=== PATIENT | male | born 1990 | race Caucasian/White ===

== ENCOUNTER 2023-09-28 00:55 | Emergency (ER) | payer OTHER, SELFPAY ==
[2023-09-28 01:04] VITALS: BP 132/89; PULSE 80; TEMP 37.1; O2SAT 98; BMI 26.6
--- NOTE | 2023-09-28 01:15 | CT_ITS ---
The [address] [address] Patient Name: EDWARD MARI MRN: [id number] date: 1990 Sex: M Assigned Patient Location: ER Current Patient Location: ED.MAIN Accession/Order Number: [id number] Exam Date: 09/28/2023 01:33 Report Date: 09/28/2023 04:10 At the request of: ROSHAN WILLINGHAM Procedure: CT abdomen pelvis w con EXAM: CT abdomen pelvis w con HISTORY: Right-sided abdominal pain, rule out appendicitis COMPARISON: None. TECHNIQUE: IV contrast enhanced CT imaging the abdomen and pelvis was performed with sagittal and coronal reconstructions using 98 mL of Omnipaque 300 intravenous contrast. Dose reduction techniques were achieved by using automated exposure control and/or adjustment of mA and/or kV according to patient size and/or use of iterative reconstruction technique. FINDINGS: CT ABDOMEN: The lung bases are clear. Imaged heart is unremarkable. The liver, gallbladder, pancreas, spleen, adrenal glands, kidneys, aorta, IVC, stomach and small bowel appear normal. There is a fat-containing umbilical hernia. CT PELVIS: A normal appendix is seen on images 67-78 of series 3. The prostate and urinary bladder are normal in appearance. Very mild wall thickening is seen in the terminal ileum on images 74 through 83, with no surrounding inflammatory change. Remaining pelvic small bowel loops are otherwise unremarkable. There is mild colonic diverticulosis. No inflammatory fat stranding, free fluid, loculated fluid, free air or osseous abnormality is seen in the abdomen or pelvis. CT/CT abdomen pelvis w con IMPRESSION: 1. Very mild wall thickening in the terminal ileum may reflect mild infectious or inflammatory ileitis. No surrounding inflammatory change is seen. No other potential cause of right lower quadrant pain is seen. There are no other potential acute findings in the abdomen or pelvis. 2. Normal appendix. 3. Mild colonic diverticulosis. Electronically authenticated by: BEENA MORATAYA Date: 09/28/2023 04:10
--- NOTE | 2023-09-28 01:15 | ED_ITS ---
HPI - Abdominal Pain General Chief Complaint: Abdominal Pain Stated Complaint: Stomach pain Time Seen by Provider: 09/28/23 00:59 Source: patient Mode of arrival: walk-in Limitations: no limitations History of Present Illness HPI narrative: 33-year-old male presents to the emergency department for abdominal pain. It started in the epigastric area but now is moved into the right lower quadrant. It started today. No trauma fever or constipation. He states he had a little bit of diarrhea but not much. No left-sided pain. No chest pain or shortness of breath. The pain is moderate and continuous. No flank pain or dysuria or hematuria. Related Data Home Medications ?Medication ?Instructions ?Recorded ?Confirmed alprazolam 0.5 mg tablet mg 09/28/23 pantoprazole 40 mg tablet,delayed mg PO 09/28/23 release vortioxetine 20 mg tablet mg 09/28/23 (Trintellix) zolpidem 10 mg tablet mg 09/28/23 Previous Rx's ?Medication ?Instructions ?Recorded hydrocodone 5 mg-acetaminophen 325 1 tab PO Q6H PRN pain 5 days #20 09/28/23 mg tablet tabs ondansetron 4 mg disintegrating 4 mg PO Q6H PRN nausea and 09/28/23 tablet vomiting #20 tabs Allergies Allergy/AdvReac Type Severity Reaction Status Date / Time No Known Drug Allergies Allergy Verified 09/28/23 01:04 Review of Systems ROS Narrative A ten point review of systems is negative except as noted above. Exam Narrative Exam Narrative: Nurses note and vital signs reviewed and patient is not hypoxic. General: The patient appears well and in no apparent distress. Patient is resting comfortably on cart. Skin: Warm, dry, no pallor noted. There is no rash noted. Head: Normocephalic, atraumatic Eye: Normal conjunctiva, no drainage Ears, Nose, Mouth, and Throat: oral mucosa is moist. Nares patent. Cardiovascular: Regular Rate and Rhythm Respiratory: Patient is in no distress, no accessory muscle use, lungs are clear to auscultation, no wheezing, rales or rhonchi Back: non-tender GI: Tenderness present on the right side of the abdomen going towards the right lower quadrant. No mass or distention. Musculoskeletal: The patient has no evidence of calf tenderness, no pitting edema, symmetrical pulses noted bilaterally Neurological: A&O, normal speech Psychiatric: Cooperative Constitutional Vital Signs, click to edit/add: Last Vital Signs Temp 98.8 F 09/28/23 01:04 Pulse 80 09/28/23 01:04 Resp 16 09/28/23 01:04 BP 132/89 09/28/23 01:04 Pulse Ox 98 09/28/23 01:04 O2 Del Method Room Air 09/28/23 01:04 Course Vital Signs Vital signs: Vital Signs Temperature 98.8 F 09/28/23 01:04 Pulse Rate 80 09/28/23 01:04 Respiratory Rate 16 09/28/23 01:04 Blood Pressure 132/89 09/28/23 01:04 Pulse Oximetry 98 09/28/23 01:04 Oxygen Delivery Method Room Air 09/28/23 01:04 Temperature 98.8 F 09/28/23 01:04 Pulse Rate 80 09/28/23 01:04 Respiratory Rate 16 09/28/23 01:04 Blood Pressure 132/89 09/28/23 01:04 Pulse Oximetry 98 09/28/23 01:04 Oxygen Delivery Method Room Air 09/28/23 01:04 MDM - Abdominal Pain MDM Narrative Medical decision making narrative: Blood work is nonspecific. CAT scan per radiologist shows ileitis. The patient does not require admission to the hospital and will be treated symptomatically. Follow-up with PCP if there is no improvement. Treatment diagnosis and follow- up were discussed with the patient. Differential Diagnosis Differential diagnosis: Likely abdominal pain, acute appendicitis, calculus of kidney, constipation, diverticulitis, gastroenteritis, pancreatitis and small bowel obstruction Lab Data Attestation: I reviewed the patient's lab results. Labs: Lab Results 09/28/23 09/28/23 Range/Units 01:23 02:45 WBC 7.5 (4.0-11.0) 10^3/uL RBC 4.65 L (4.70-6.10) 10^6/uL Hgb 13.6 L (14.0-18.0) g/dL Hct 40.2 L (42.0-54.0) % MCV 86.5 (80.0-94.0) fL MCH 29.2 (25.9-34.0) pg MCHC 33.8 (29.9-35.2) g/dL RDW 11.8 (11.0-15.0) % Plt Count 234 (150-450) 10^3/uL MPV 10.7 (9.5-13.5) fL Neut % (Auto) 47.6 (43.0-75.0) % Lymph % (Auto) 41.1 (20.5-60.0) % [place] % (Auto) 7.8 (1.7-12.0) % Eos % (Auto) 2.3 (0.9-7.0) % Baso % (Auto) 0.8 (0.2-2.0) % Neut # (Auto) 3.6 (1.4-6.5) 10^3/uL Lymph # (Auto) 3.1 (1.2-3.8) 10^3/uL [place] # (Auto) 0.6 (0.3-0.8) 10^3/uL Eos # (Auto) 0.2 (0.0-0.7) 10^3/uL Baso # (Auto) 0.1 (0.0-0.1) 10^3/uL Abs Immat Gran (auto) 0.03 (0.00-0.03) 10^3/uL Imm/Tot Granulo (auto) 0.4 (0.0-0.5) % Sodium 139 (136-145) mmol/L Potassium 3.1 L (3.5-5.1) mmol/L Chloride 103 (98-107) mmol/L Carbon Dioxide 30.4 (21.0-32.0) mmol/L Anion Gap 8.7 BUN 16.0 (7.0-18.0) mg/dL Creatinine 1.23 (0.70-1.30) mg/dL Est GFR ( Amer) >60 (>=60) Est GFR (Non-Af Amer) >60 (>=60) BUN/Creatinine Ratio 13.0 Glucose 97 (74-106) mg/dL Calcium 9.1 (8.5-10.1) mg/dL Total Bilirubin 0.6 (0.2-1.0) mg/dL Direct Bilirubin 0.1 (0.0-0.2) mg/dL AST 19 (15-37) U/L ALT 44 (16-63) U/L Alkaline Phosphatase 96 (46-116) U/L Total Protein 6.9 (6.4-8.2) g/dL Albumin 3.8 (3.4-5.0) g/dL Globulin 3.1 g/dL Albumin/Globulin Ratio 1.2 Amylase 43 (25-115) U/L Lipase 54.0 (16.0-77.0) U/L Urine Color Yellow (YELLOW) Urine Clarity Clear (CLEAR) Urine pH 7.5 (5.0-9.0) Ur Specific [place] 1.010 (1.005-1.025) Urine Protein Negative (NEG/TRACE) mg/dL Urine Glucose (UA) Negative (NEGATIVE) mg/dL Urine Ketones Negative (NEGATIVE) mg/dL Urine Occult Blood Negative (NEGATIVE) Urine Nitrite Negative (NEGATIVE) Urine Bilirubin Negative (NEGATIVE) Urine Urobilinogen 1.0 (0.2-1.0) EU/dL Ur Leukocyte Esterase Negative (NEGATIVE) Urine RBC None seen (0-2) #/HPF Urine WBC None seen (NONE SEEN) #/HPF Ur Squamous Epith Cells None seen (NONE/RARE) #/LPF Urine Crystals None seen (None Seen) #/HPF Amorphous Sediment Few Urine Bacteria None seen (NONE SEEN) #/HPF Urine Casts None seen (NONE SEEN) #/LPF Urine Mucus None seen (NONE SEEN) Ur Culture Indicated? No Imaging Data CT scan - abdomen: Radiologist's impression: ITS Impressions Abdomen/Pelvis CT 09/28/23 01:15 IMPRESSION: 1. Very mild wall thickening in the terminal ileum may reflect mild infectious or inflammatory ileitis. No surrounding inflammatory change is seen. No other potential cause of right lower quadrant pain is seen. There are no other potential acute findings in the abdomen or pelvis. 2. Normal appendix. 3. Mild colonic diverticulosis. Electronically authenticated by: BEENA MORATAYA Date: 09/28/2023 04:10 Discharge Plan Discharge Stand Alone Forms: Portal Instructions Chief Complaint: Abdominal Pain Clinical Impression: Ileitis Patient Disposition: Home, Self-Care Time of Disposition Decision: 04:20 Condition: Good Mode of Transportation: Private Vehicle Prescriptions / Home Meds: New hydrocodone-acetaminophen 5-325 mg tablet 1 tab PO Q6H PRN (Reason: pain) 5 Days Qty: 20 0RF ondansetron 4 mg tablet,disintegrating 4 mg PO Q6H PRN (Reason: nausea and vomiting) Qty: 20 0RF No Action alprazolam 0.5 mg tablet pantoprazole 40 mg tablet,delayed release (DR/EC) PO zolpidem 10 mg tablet Trintellix 20 mg tablet Print Language: Barbadian Instructions: Enteritis (ED) Referrals: UNRULY BUTT [Primary Care Provider] - 1 week
[2023-09-28 01:36] LABS: Basophils Absolute Auto 0.1 10^3/uL (0.0-0.1); Basophils Percent Auto 0.8 % (0.2-2.0); Eosinophils Absolute Auto 0.2 10^3/uL (0.0-0.7); Eosinophils Percent Auto 2.3 % (0.9-7.0); Hematocrit 40.2 % (42.0-54.0); Hemoglobin 13.6 g/dL (14.0-18.0); Immature Granulocytes Abs Auto 0.03 10^3/uL (0.00-0.03); Immature Granulocytes Pct Auto 0.4 % (0.0-0.5); Lymphocytes Absolute Auto 3.1 10^3/uL (1.2-3.8); Lymphocytes Percent Auto 41.1 % (20.5-60.0); Mean Corpuscular HGB Conc 33.8 g/dL (29.9-35.2); Mean Corpuscular Hemoglobin 29.2 pg (25.9-34.0); Mean Corpuscular Volume 86.5 fL (80.0-94.0); Mean Platelet Volume 10.7 fL (9.5-13.5); Monocytes Absolute Auto 0.6 10^3/uL (0.3-0.8); Monocytes Percent Auto 7.8 % (1.7-12.0); Neutrophils Absolute Auto 3.6 10^3/uL (1.4-6.5); Neutrophils Percent Auto 47.6 % (43.0-75.0); Platelet Count 234 10^3/uL (150-450); Red Blood Count 4.65 10^6/uL (4.70-6.10); Red Cell Distribution Width 11.8 % (11.0-15.0); White Blood Count 7.5 10^3/uL (4.0-11.0)
[2023-09-28 01:51] LABS: Alanine Aminotransferase 44 U/L (16-63); Albumin Globulin Ratio 1.2; Albumin Level 3.8 g/dL (3.4-5.0); Alkaline Phosphatase 96 U/L (46-116); Amylase 43 U/L (25-115); Anion Gap 8.7; Aspartate Amino Transferase 19 U/L (15-37); Bilirubin Direct 0.1 mg/dL (0.0-0.2); Bilirubin Total 0.6 mg/dL (0.2-1.0); Calcium 9.1 mg/dL (8.5-10.1); Carbon Dioxide 30.4 mmol/L (21.0-32.0); Chloride 103 mmol/L (98-107); Estimated GFR (African America >60 (>=60); Estimated GFR (Non-African Ame >60 (>=60); Globulin 3.1 g/dL; Glucose 97 mg/dL (74-106); Potassium 3.1 mmol/L (3.5-5.1); Sodium 139 mmol/L (136-145); Total Protein 6.9 g/dL (6.4-8.2)
[2023-09-28 02:50] LABS: Bilirubin Urine NEGATIVE (NEGATIVE); Blood Urine NEGATIVE (NEGATIVE); Clarity Urine CLEAR (CLEAR); Color Urine YELLOW (YELLOW); Glucose Urine UA NEGATIVE (NEGATIVE); Ketones Urine NEGATIVE (NEGATIVE); Leukocyte Esterase Urine NEGATIVE (NEGATIVE); Nitrite Urine NEGATIVE (NEGATIVE); Protein Urine NEGATIVE (NEG/TRACE); pH Urine 7.5 (5.0-9.0)
[2023-09-28 02:56] LABS: Amorphous Sediment Urine FEW; Bacteria Urine NONE SEEN #/HPF (NONE SEEN); Cast Seen? NONE SEEN #/LPF (NONE SEEN); Crystals Seen? None Seen #/HPF (None Seen); Mucus Urine NONE SEEN (NONE SEEN); RBC Urine NONE SEEN #/HPF (0-2); Squamous Epithelial Cell Urine NONE SEEN #/LPF (NONE/RARE); Urine Culture Indicated NO; WBC Urine NONE SEEN #/HPF (NONE SEEN)
[2023-09-28 04:30] VITALS: BP 115/73; PULSE 78; O2SAT 95
== END 2023-09-28 04:30 | disposition home or self-care (01) ==
PROVIDERS: Emergency Provider Emergency Medicine; PCP Family Medicine
DX: K52.9 Noninfective gastroenteritis and colitis, unspecified (principal); Z79.899 Other long term (current) drug therapy
CPT/HCPCS: 36415; 74177; 80048; 80076; 81001; 82150; 83690; 85025; 99284; Q9967

== ENCOUNTER 2024-01-13 08:41 | Outpatient (OUT) | payer OTHER, SELFPAY ==
[2024-01-13 08:59] LABS: Basophils Absolute Auto 0.1 10^3/uL (0.0-0.1); Basophils Percent Auto 0.8 % (0.2-2.0); Eosinophils Absolute Auto 0.2 10^3/uL (0.0-0.7); Eosinophils Percent Auto 2.5 % (0.9-7.0); Hematocrit 43.2 % (42.0-54.0); Hemoglobin 14.7 g/dL (14.0-18.0); Immature Granulocytes Abs Auto 0.01 10^3/uL (0.00-0.03); Immature Granulocytes Pct Auto 0.2 % (0.0-0.5); Lymphocytes Percent Auto 33.3 % (20.5-60.0); Mean Corpuscular Hemoglobin 29.5 pg (25.9-34.0); Mean Corpuscular Volume 86.6 fL (80.0-94.0); Mean Platelet Volume 10.5 fL (9.5-13.5); Monocytes Absolute Auto 0.4 10^3/uL (0.3-0.8); Monocytes Percent Auto 7.2 % (1.7-12.0); Neutrophils Absolute Auto 3.3 10^3/uL (1.4-6.5); Platelet Count 213 10^3/uL (150-450); Red Blood Count 4.99 10^6/uL (4.70-6.10)
--- OUTSIDE RECORDS SUMMARY | 2024-01-13 09:02 | XMS_ITS | CCD ---
Author Organization [facility] Care Team Providers Care Metal Inspector Name Role Phone DR BERNADETTE BUTT Primary Care Unavailable ROSHAN WILLINGHAM Admitting Unavailable ROSHAN WILLINGHAM Attending Unavailable REGINA .LEXIS Consulting UnavailBrynn Lloyd, BRYAN Admitting Unavailable BRYAN JORGENSEN Attending Unavailable DR BERNADETTE BUTT Primary Care Unavailable REGINA .LEXIS Consulting UnavailBryan Locke Consulting Unavailable Bernadette Butt MD Primary Care Provider Bernadette Butt MD Unavailable GERALDO GUTIERREZ Attending Unavailable PAWAN HOOVER Attending Unavailable GERALDO GUTIERREZ Attending Unavailable BERNADETTE BUTT Primary Care Physician Moise Lepe Admitting Unavailable Moise Lepe Attending Unavailable Moise Lepe Referring Unavailable Moise Lepe Attending Unavailable PAWAN HOOVER Referring Unavailable Allergies Allergy Classification Reported Allergen(s) Allergy Type Date of Onset Reaction(s) Facility (1 source) bee venom Drug allergy (disorder) 09-16-2014 [facility] Repository (2 sources) Honey bee venom Allergy to substance 03-09-2023 [facility] Healthcare Medications Current Medications Medication Drug Class(es) Dates Sig (Normalized) Sig (Original) acetaminophen 325 mg / oxyCODONE hydrochloride 2.5 mg oral tablet (2 sources) Opioid Agonist Start: 2016 Percocet 2.5/325 oral tablet 1 tab(s), Oral, q4hr for pain, 12 tab(s), Refill(s) 0 Start Date: 09/20/16 Status: Ordered ALPRAZolam 0.5 mg oral tablet (2 sources) Benzodiazepine Start: 05-30-2023 take 1 tablet by mouth once daily as needed for anxiety ALPRAZolam (Xanax) 0.5 MG tablet Indications: Adjustment disorder with anxious mood (CMS/HCC) TAKE 1 TABLET BY MOUTH DAILY NEEDED FOR ANXIETY 30 tablet 3 05/30/2023 Active amoxicillin 875 mg oral tablet (2 sources) Penicillin-class Antibacterial Start: 07-02-2023 End: 07-12-2023 take 1 tablet by mouth in the morning amoxicillin (Amoxil) 875 MG tablet Indications: Non-recurrent acute suppurative otitis media of left ear without spontaneous rupture of tympanic membrane Take 1 tablet (875 mg) by mouth in the morning and 1 tablet (875 mg) before bedtime. Do all this for 10 days. 20 tablet 0 07/02/2023 07/12/2023 Active hyoscyamine sulfate 0.125 mg oral tablet (2 sources) Start: 11-27-2023 take 2 tablets by mouth four times daily as needed for muscle spasms Levsin 0.125 mg SL Tab 0.25 mg = 2 tab(s), Oral, QID, PRN for spasm, # 80 tab(s), Refills(s) 0, Pharmacy: [facility]/pharmacy #[id number], 176, cm, 11/27/23 12:09:00 EDT, Height/Length Dosing, 83.8, kg, 11/27/23 12:09:00 EDT, Weight Dosing Start Date: 11/27/23 Status: Ordered meclizine hydrochloride 25 mg oral tablet (2 sources) Antiemetic Start: 11-09-2022 take 1 tablet by mouth in the morning meclizine (Antivert) 25 MG tablet Indications: Dysfunction of Eustachian tube, unspecified laterality Take 1 tablet (25 mg) by mouth in the morning and 1 tablet (25 mg) before bedtime. 30 tablet 3 11/09/2022 Active pantoprazole (4 sources) Proton Pump Inhibitor Start: 11-27-2023 pantoprazole Refills(s) 0, Control of stomach acid Start Date: 11/27/23 Status: Ordered Start: 11-27-2023 pantoprazole R efills(s) 0 Start Date: 11/27/23 Status: Ordered Start: 10-20-2022 take 1 tablet by [facility] once daily pantoprazole (ProtoNix) 40 MG EC tablet TAKE 1 TABLET BY MOUTH EVERY DAY FOR 100 DAYS 0 10/20/2022 Active predniSONE 20 mg oral tablet (2 sources) Start: 07-02-2023 predniSONE (Deltasone) 20 MG tablet Indications: Non-recurrent acute suppurative otitis media of left ear without spontaneous rupture of tympanic membrane Take two tablets once a day in the morning for 5 days 10 tablet 0 07/02/2023 Active sildenafil 100 mg oral tablet (2 sources) Phosphodiesterase 5 Inhibitor Start: 12-10-2021 take 1 tablet by mouth once daily as needed sildenafil (Viagra) 100 MG tablet TAKE 1 TABLET BY MOUTH EVERY DAY NEEDED FOR 90 DAYS 0 12/10/2021 Active Trintellix (4 sources) Start: 11-27-2023 Trintellix Oral, Daily, Refills(s) 0, Depression Start Date: 11/27/23 Status: Ordered Start: 11-27-2023 Trintellix Ora l, Daily, Refills(s) 0 Start Date: 11/27/23 Status: Ordered Start: 03-27-2023 take 1 tablet by bobbi once daily Trintellix 20 MG tablet Indications: Adjustment disorder with anxiety (CMS/HCC) TAKE 1 TABLET BY MOUTH EVERY DAY 30 tablet 13 03/27/2023 Active Ambien (4 sources) gamma-Aminobutyric Acid-ergic Agonist Start: 11-27-2023 Ambien Oral, Once a day (at bedtime), Refills(s) 0, Sleep Start Date: 11/27/23 Status: Ordered Start: 11-27-2023 Ambien Oral, O nce a day (at bedtime), Refills(s) 0 Start Date: 11/27/23 Status: Ordered Start: 04-13-2023 zolpidem (Ambi en) 10 MG tablet Indications: Insomnia, unspecified type Take 1 tablet (10 mg) by mouth as needed at bedtime for sleep. 30 tablet 2 04/13/2023 Active Problems Active Problems Problem Classification Problem Date Documented Da te Episodic/Chronic Abdominal pain (7 sources) Right upper quadrant pain; Translations: [Right upper quadrant pain] Onset: 1 03-09-2023 Episodic Adjustment disorders (2 sources) Adjustment disorder with anxious mood; Translations: [Adjustment disorder with anxiety] Onset: 7 11-14-2022 Chronic Conduction disorders (2 sources) Rxqvb-Jyugynvkl-Astwb pattern 11-26-2023 Chronic Esophageal disorders (7 sources) Gastroesophageal reflux disease; Translations: [Gastro-esophageal reflux disease without esophagitis] Onset: 0 03-09-2023 Chronic Noninfectious gastroenteritis (6 sources) Noninfectious enteritis; Translations: [Noninfective gastroenteritis and colitis, unspecified] Onset: 4 Episodic Other gastrointestinal disorders (2 sources) Irritable bowel syndrome; Translations: [Irritable bowel syndrome without diarrhea] Onset: 3 03-09-2023 Chronic Other male genital disorders (2 sources) Secondary erectile dysfunction; Translations: [Male erectile dysfunction, unspecified] Onset: 0 03-09-2023 Chronic Other nervous system disorders (2 sources) Difficulty walking; Translations: [Difficulty in walking, not elsewhere classified] Onset: 9 03-09-2023 Chronic Other upper respiratory disease (2 sources) Seasonal allergy; Translations: [Other seasonal allergic rhinitis] Onset: 3 11-06-2022 Chronic Otitis media and related conditions (4 sources) Acute suppurative otitis media without spontaneous rupture of ear drum; Translations: [Acute suppurative otitis media without spontaneous rupture of ear drum, left ear] Onset: 3 07-02-2023 Episodic Past or Other Problems Problem Classification Problem Date Documented Da te Episodic/Chronic Conditions associated with dizziness or vertigo (4 sources) Dizziness and giddiness; Translations: [DIZZINESS AND GIDDINESS] Onset: 06-18-2022 Episodic Intestinal infection (2 sources) Enteritis due to rotavirus; Translations: [Rotaviral enteritis] Onset: 11-06-2022 11-06-2022 Episodic Other aftercare (1 source) Other intermodal customer service (current) drug therapy; Translations: [OTH RESEARCH TECHNICIAN CURRENT DRUG THERAPY] Onset: 06-20-2022 Episodic Poisoning by nonmedicinal substances (2 sources) Allergic reaction to bee sting; Translations: [Toxic effect of venom of bees, accidental (unintentional), initial encounter] Onset: 07-12-2017 03-09-2023 Episodic Residual codes; unclassified (2 sources) Insomnia; Translations: [Insomnia, unspecified] Onset: 05-23-2020 03-09-2023 Episodic Viral infection (4 sources) COVID-19; Translations: [Other specified viral infection] Onset: 04-14-2021 03-09-2023 Episodic Results Test Name Value Interpretation Reference Range Facility Surgical Pathology Reporton 12-13-2023 Surgical Pathology Report [address] [place] [address]- Surgical Pathology Report Collected Date/Time: 12/11/2023 11:14 EDT Pathologist: Charlie Durant MD Received Date/Time: 12/12/2023 09:02 EDT Sherley LÓPEZ, Moise Lepe MD, Moise Horta Surgical Pathology Report - 12/13/2023 13:47 EDT - Auth (Verified) Final Diagnosis A: COLON, RANDOM, BIOPSY: - Benign colonic mucosa with a single lymphoid aggregate. - No evidence of chronic, active or microscopic colitis identified. B: GASTRIC POLYP, POLYPECTOMY: - Hyperplastic polyp. (Electronic Signature) Yan. Carleen MD 12/13/2023 13:47 Clinical Information Chronic GERD, ileitis, chronic diarrhea, RLQ abdominal pain Pre-Op Diagnosis: Chronic GERD, ileitis, chronic diarrhea, RLQ abdominal pain Procedure: EGD, colonoscopy Post-Op Diagnosis: 1.Diverticulosis 2.Internal hemorrhoids 3.Status post random colon biopsies 4.LA grade C esophagitis 5.Gastropathy and stomach polyp Specimen(s) Received A: Random colon biopsy B: Gastric polyp biopsy Gross Description A: Received in formalin labeled with patient name, number, and random colon biopsy are multiple fragments of goldsmith tissue ranging from less than 0.1 cm up to 0.3 cm in greatest dimension. Specimen is entirely submitted in one cassette. B: Received in formalin labeled with patient name, number, and gastric polyp biopsy is a single fragment of goldsmith tissue measuring 0.4 x 0.3 x 0.1 cm. Specimen is entirely submitted in one cassette. (DC) DC:[facility] Microscopic Description A&B: Microscopic examination performed unless gross only specified. The use of one or more reagents in the above tests is regulated as an analyte specific reagent (ASR). The test or tests are ordered following initial H&E microscopic examination. The performance characteristics were determined by the Laboratory of [facility]. They have not been cleared or approved by the US Food and Drug Administration. The FDA has determined that such clearance or approval is not necessary. These tests are used for clinical purposes. They should not be regarded as investigational or for research. Appropriate positive and negative controls are performed and are acceptable. Normal [facility] Comment on above: Performed By: #### [id number] #### [facility] [address] [place] [address] Main OR Intraoperative Recor don 12-12-2023 Main OR Intraoperative Record Main OR Intraoperative Record IntraOp Document Type FT Summary Primary Physician: Moise Lepe MD Finalized Date/Time: 12/12/23 13:25:48 Pt. Name: KAMALJITEDWARD/Sex: 1990 Male Med Rec #: [id number] Physician: Moise Lepe MD Financial #: [id number] Pt. Type: O Room/Bed: / Admit/Disch: 12/11/23 09:25:05 - 12/11/23 23:59:59 Institution: Case Times FT Entry 1 Patient Times In Room 12/11/23 11:02:00 Out Room 12/11/23 11:24:00 Procedure Times Start 12/11/23 11:04:00 Stop 12/11/23 11:20:00 Anesthesia Times Start 12/11/23 11:02:00 Stop 12/11/23 11:24:00 Time at [facility] 12/11/23 11:11:00 Last Modified By: Sobia Wu RN 12/11/23 11:25:47 General Comments: 1108-EGD completed/AW RN 1109-Colonoscopy started/AW RN 12/12/23 Chart opened to review and send charges LRoth CSFA Case Attendance FT Entry 1 Entry 2 Entry 3 Case Attendee James Oneal Jr., DO, MD, Sobia Nieto RN Role Performed Anesthesiologist of Surgeon - Primary Civil Engineering Director - Primary Record Time In 12/11/23 11:02:00 12/11/23 11:02:00 12/11/23 11:02:00 Time Out 12/11/23 11:24:00 12/11/23 11:24:00 12/11/23 11:24:00 Procedure EGD AND COLONOSCOPY(.) EGD AND COLONOSCOPY(.) EGD AND COLONOSCOPY(.) Comments Last Modified By: Sobia Wu RN, RN, Sobia Valdez RN 12/11/23 11:25:47 12/11/23 11:25:47 12/11/23 11:25:47 Entry 4 Case Attendee Deysi Ritter Role Performed Scrub - Primary Time In 12/11/23 11:02:00 Time Out 12/11/23 11:24:00 Procedure EGD AND COLONOSCOPY(.) Comments Last Modified By: Sobia Wu RN 12/11/23 11:25:47 Perioperative Protocols FT Pre-Care Text: Implements protective measures prior to operative or invasive procedure, confirms identity before the operative or invasive procedure, verifies operative procedure, surgical site, and laterality Entry 1 Procedure(s) EGD AND COLONOSCOPY(.) Patient Identity Birthday, ID Band Verified (select at Check, Patient least 2): Participation Consents / H and P Anesthesia Consent, Operative Site N/A Verified HandP, Surgery/Procedure Marking Verified Consent Surgical Site No Laterality Verified n/a Verified Procedure Verified Yes Correct Patient Yes Position Verified Availability Equipment, Medication Prep Dry n/a Verified (If Applicable) PreOp Antibiotic No Time Out James Oneal Jr., DO Given Participants Sherley Beyer MD, Jazmin De Guzman RN, Stone Ramsay Kirstyn K Time Out Complete 12/11/23 11:03:00 Outcomes Met? Yes Last Modified By: Sobia Wu RN 12/11/23 11:09:20 Post-Care Text: The patient is free from signs and symptoms of injury caused by extraneous objects Allergy Information FT Pre-Care Text: Verifies allergies Entry 1 Allergies Reviewed? Yes Allergies Reviewed Self/Patient With Outcomes Met? Yes Last Modified By: Sobia Wu RN 12/11/23 11:09:26 Post-Care Text: The patient received appropriate medication(s) safely administered during the perioperative period Surgical Procedures FT Entry 1 Procedure Description Procedure EGD AND COLONOSCOPY Modifiers . Surgeon Description EGD with gastric polyp biopsy. Colonoscopy with random colon biopsy Primary Procedure Yes Primary Surgeon Moise Lepe MD Start 12/11/23 11:04:00 Stop 12/11/23 11:20:00 Anesthesia Type General Surgical Service Gastroenterology Wound Class 2 - Clean-Contaminated Last Modified By: Sobia Wu RN 12/11/23 11:21:30 General Case Data FT Pre-Care Text: Classifies surgical wound, implements aseptic technique, initiates traffic control Entry 1 Case Information OR ENDO 1 FT Case Level Level 2 Wound Class 2 - Clean-Contaminated Specialty Gastroenterology ASA Class 2 Preop Diagnosis CHRONIC GERD, ILEITIS, Postop Same As Preop No CHRONIC DIARRHEA, RLQ ABDOMINAL PAIN Postop Diagnosis EGD- LA Grade C Outcomes Met? Yes esophagitis, gastric polyp. Colonoscopy -diverticulosis and internal hemorrhoids Last Modified By: Sobia Wu RN 12/11/23 11:22:11 Post-Care Text: The patient is free from signs and symptoms of infection Skin Assessment (Pre Procedure) FT Pre-Care Text: Implements protective measures to prevent skin/ tissue injury due to thermal or mechanical sources Evaluates for signs and symptoms of physical injury to skin and tissue Entry 1 Skin Integrity Intact, [place], Warm, and Skin Abnormality No Dry Outcomes Met? Yes Last Modified By: Sobia Wu RN 12/11/23 11:10:58 Post-Care Text: The patient is free from signs and symptoms of injury caused by extraneous objects Patient Positioning FT Pre-Care Text: Identifies physical alterations that require additional precautions for procedure-specific positioning, verifies presence of prosthetics or corrective devices, positions the patient, evaluates the patient for signs and symptoms of injury as a result o (more content not included)... Normal [facility] Discharge Instructionson Discharge Instructions Discharge Instruc tions EDWARD GOSS :1990 Visit Date:12/11/2023 Inpatient Discharge Instructions Your Care Team Admitting Physician - Moise Lepe MD Referring Physician - Moise Lepe MD Reason for Your Visit CHRONIC GERD, ILEITIS, CHRONIC DIARRHEA, RLQ ABDOMINAL PAIN Your Diagnosis Diverticulosis Esophagitis, [place] grade C Gastric polyp Hemorrhoids, internal Tests Performed Pathology Tissue Exam -- Results Pending -- Please visit your patient portal for your results or contact your primary care physician. This Is Your Medications List acetaminophen-oxycodone (Percocet 2.5/325 oral tablet) hyoscyamine (Levsin 0.125 mg SL Tab) pantoprazole vortioxetine (Trintellix) zolpidem (Ambien) Discharge Vitals Temperature (Temporal Artery) 36.6 ?C Heart Rate (Monitored) 77 Respiratory Rate 18 Blood Pressure 127/87 Height 176 cm Weight 83.8 kg What to do next Instructions From Your Doctor No qualifying data available. New Follow Up Appointments after Discharge Follow Up with Sherley LÓPEZ, ABI De Guzman, MED When: Comments: office will call for follow up Where: [address] [place] [address], [address] [place] [address]- [phone] Medications What How Much When Why Instructions Next Dose Unchanged acetaminophen-oxycodone (Percocet 2.5/ 325 oral tablet) 1 Tablets By Mouth Every 4 hours as needed for for pain Unchanged hyoscyamine (Levsin 0.125 mg SL Tab) 2 Tablets By Mouth 4 times a day as needed for for spasm Chronic GERD Ileitis Chronic diarrhea Right lower quadrant abdominal pain Unchanged pantoprazole Unchanged vortioxetine (Trintellix) By Mouth Every day Unchanged zolpidem (Ambien) By Mouth Once a day (at bedtime) Test Results No qualifying data available. Allergies No Known Allergies Problems Ongoing - Any problem that you are currently receiving treatment for. Chronic diarrhea Chronic GERD Generalized abdominal pain Ileitis Right lower quadrant abdominal pain Rqtvr-Eokzdpuug-Hgyds syndrome Education Materials Upper Endoscopy, Adult, Care After After the procedure, it is common to have a sore throat. It is also common to have: ? Mild stomach pain or discomfort. ? Bloating. ? Nausea. Follow these instructions at home: The instructions below may help you care for yourself at home. Your health care provider may give you more instructions. If you have questions, ask your health care provider. ? If you were given a sedative during the procedure, it can affect you for several hours. Do not drive or operate machinery until your health care provider says that it is safe. ? If you will be going home right after the procedure, plan to have a responsible adult: ? Take you home from the hospital or clinic. You will not be allowed to drive. ? Care for you for the time you are told. ? Follow instructions from your health care provider about what you may eat and drink. ? Return to your normal activities as told by your health care provider. Ask your health care provider what activities are safe for you. ? Take ystn-pma-ohhejnm and prescription medicines only as told by your health care provider. Contact a health care provider if you: ? Have a sore throat that lasts longer than one day. ? Have trouble swallowing. ? Have a fever. Get help right away if you: ? Vomit blood or your vomit looks like coffee grounds. ? Have bloody, black, or tarry stools. ? Have a very bad sore throat or you cannot swallow. ? Have difficulty breathing or very bad pain in your chest or abdomen. These symptoms may be an emergency. Get help right away. Call 911. ? Do not wait to see if the symptoms will go away. ? Do not drive yourself to the hospital. Summary ? After the procedure, it is common to have a sore throat, mild stomach discomfort, bloating, and nausea. ? If you were given a sedative during the procedure, it can affect you for several hours. Do not drive until your health care provider says that it is safe. ? Follow instructions from your health care provider about what you may eat and drink. ? Return to your normal activities as told by your health care provider. This information is not intended to replace advice given to you by your health care provider. Make sure you discuss any questions you have with your health care provider. Document Revised: 08/22/2022 Document Reviewed: 08/22/2022 [employer] Patient Education ? 2022 [employer]. Stomach Polyps A stomach polyp, also called a gastric polyp, is a growth on the lining of the stomach. A stomach polyp may be found by chance when you are being examined for another reason. Most polyps are not dangerous, but some can be harmful because of their size, location, or type. Polyps that can become harmful include: ? Large polyps. These can turn into open so (more content not included)... Normal [facility] Comment on above: Result Comment: Elec tronically Signed By: Lorenza QUIÑONEZ, Jyothi\.lino\Date and Time Signed: 12/11/23 11:39 EDT [place] 12-11-2023 Esophagogastroduodenosco py EGD Patient: EDWARD GOSS Age: 33 years Sex: Male : 1990 Associated Diagnoses: None Author: Moise Lepe MD Pre-Procedure Procedure Date 12/11/2023 11:21:00 . Procedure Type: Esophagogastroduodenoscop y with biopsy. Procedure provider Performed by Moise Lepe MD. Current history and physical Documented on chart. Informed Consent After discussing the rationale, risks and benefits, and alternatives to this procedure, the patient provided signed consent for the procedure. Pre-procedure diagnosis: anemia. Medications (Selected) Inpatient Medications Ordered Lactated Ringers IV Mayuri 1000 mL 1,000 mL: 1,000 mL, IV, 100 mL/hr, Routine, Start date 12/11/23 9:58:00 EDT, 10 hour(s), Total volume (mL): 1,000, 83.8 kg, 2.02, m2 Sodium Chloride 0.9% IV Mayuri 1000 mL 1,000 mL: 1,000 mL, IV, 20 mL/hr, Routine, Start date 12/11/23 7:15:00 EDT, 50 hour(s), Total volume (mL): 1,000, 83.8 kg, 2.02, m2 Prescriptions Prescribed Levsin 0.125 mg SL Tab: 0.25 mg = 2 tab(s), Oral, QID, PRN for spasm, # 80 tab(s), Refills(s) 0, Pharmacy: [facility]/pharmacy #[id number], 176, cm, 11/27/23 12:09:00 EDT, Height/Length Dosing, 83.8, kg, 11/27/23 12:09:00 EDT, Weight Dosing Percocet 2.5/325 oral tablet: 1 tab(s), Oral, q4hr for pain, 12 tab(s), Refill(s) 0 Documented Medications Documented Ambien: Oral, Once a day (at bedtime), Refills(s) 0, Sleep Trintellix: Oral, Daily, Refills(s) 0, Depression pantoprazole: Refills(s) 0, Control of stomach acid Anticoagulant/antiplatele t None. ASA Classification: Class II. . Monitoring: See anesthesia record. . Procedure The procedure was performed in the hospital. See anesthesia record for sedation given during procedure. The patient was positioned starting in the left lateral decubitus position and with safety measures. Endoscope type used was an adult-size, introduced orally, advanced to the 2nd portion of the duodenum. No difficulty was encountered during the procedure. Views were excellent. The patient tolerated the procedure well. Findings 1. LA grade C esophagitis. 2. Erythema in the antrum, mild patchy. Otherwise normal stomach. Semipedunculated 5 mm polyp seen in the body of the stomach status post biopsies 3. Normal duodenum. Images Procedure images: [id number].jpg [id number].jpg [id number].jpg [id number].jpg [id number]_[email or web address]__[id number].jpg [id number]_[email or web address]__[id number].jpg [id number]__[id number].jpg [id number]__[id number].jpg . Post-Procedure Complications: none. Estimated blood loss: minimal. Specimens: sent to pathology. Devices/ implants: none left in place. Impression and Plan LA grade C esophagitis Gastropathy and stomach polyp Recommendations: -Resume previous diet -Increase Protonix to 2 times a day -repeat EGD after 3 months to assess healing -Resume home medications -Await pathology results, follow in GI clinic in 1-2 after discharge Normal [facility] Comment on above: Other Comment: Lacy prieto Attachment - attachment storage system not supported [id number] Can be viewed in source system Missing Attachment - attachment storage system not supported [id number] Can be viewed in source system Missing Attachment - attachment storage system not supported [id number] Can be viewed in source system Missing Attachment - attachment storage system not supported [id number] Can be viewed in source system Missing Attachment - attachment storage system not supported [id number] Can be viewed in source system Missing Attachment - attachment storage system not supported [id number] Can be viewed in source system Missing Attachment - attachment storage system not supported [id number] Can be viewed in source system Missing Attachment - attachment storage system not supported [id number] Can be viewed in source system Missing Attachment - attachment storage system not supported [id number] Can be viewed in source system Main OR Preoperative Recordo n 12-11-2023 Main OR Preoperative Record Main OR Preoperative Record Holding Area Document Type FT Summary Primary Physician: Moise Lepe MD Finalized Date/Time: 12/11/23 09:54:06 Pt. Name: KAMALJITEDWARD./Sex: 1990 Male Med Rec #: [id number] Physician: Moise Lepe MD Financial #: [id number] Pt. Type: O Room/Bed: / Admit/Disch: 12/11/23 09:25:05 - Institution: Case Times Holding FT Pre-Care Text: Verifies consent for planned procedure, identifies individual values and wishes concerning care, includes family members in perioperative teaching Secures patient's records' belongings, and valuables, maintains patient's dignity and privacy, and maintains patient confidentiality Entry 1 In Holding 12/11/23 09:45:00 Outcomes Met? Yes Last Modified By: Karen Morales RN 12/11/23 09:53:11 Post-Care Text: The patient participates in decisions affecting his or her perioperative plan of care The patient's right to privacy is maintained Surgery Checklist FT Entry 1 Patient Birthday, ID Band Procedure History and Physical, Identification: Check, Patient Verification: Surgical Consent, With Participation Patient NPO after Midnight: Yes Results Reviewed Clear/blue Comments: Personal Items None Complaints of Pain: No Comment: Pain Comment: Denies Operative Site n/a Marking: Availability Equipment Verified: Does Patient Smoke No Patient states Yes Comment - Adult Geraldo- postop adult Supervision supervision available Case Cancelled in No Holding Area see comments below for reason Last Modified By: Karen Morales RN 12/11/23 09:54:02 General Comments: Pt completed prep at 0600 and remained NPO since/BRADYRN Finalized By: Karen Morales RN Document Signatures Signed By: Karen Morales RN 12/11/23 09:54 Normal [facility] Ambulatory Visit Summaryon 0 11-27-2023 Ambulatory Visit Summary Ambulatory Visi t Summary EDWARD GOSS :1990 Visit Date:11/27/2023 Ambulatory Visit Instructions Your Diagnosis Chronic GERD Ileitis, Chronic diarrhea Generalized abdominal pain Your Care Team Attending Physician - Moise Lepe MD Primary Care Physician - BERNADETTE BUTT MD Referring Physician - PAWAN SILVA This Is Your Medications List hyoscyamine (Levsin 0.125 mg SL Tab) Contact prescribing physician if questions or concerns acetaminophen-oxycodone (Percocet 2.5/325 oral tablet) pantoprazole vortioxetine (Trintellix) zolpidem (Ambien) Discharge Vitals Heart Rate (Peripheral) 72 Respiratory Rate 16 Blood Pressure 118/86 Height 176 cm Height 69 in Weight 83.8 kg Weight 184.36 lb BMI 27.05 What to do next Scheduled Follow-Up Appointments Saturday 10:45 AM EDT Where: [facility] Surgical Services Medications What How Much When Why Instructions New hyoscyamine (Levsin 0.125 mg SL Tab) 2 Tablets By Mouth 4 times a day as needed for for spasm Chronic GERD Ileitis Chronic diarrhea Right lower quadrant abdominal pain Pickup at [facility]acy #[id number] Unchanged acetaminophen-oxycodone (Percocet 2.5/ 325 oral tablet) 1 Tablets By Mouth Every 4 hours as needed for for pain Contact prescribing physician if questions or concerns Unchanged pantoprazole Contact prescribing physician if questions or concerns Unchanged vortioxetine (Trintellix) By Mouth Every day Contact prescribing physician if questions or concerns Unchanged zolpidem (Ambien) By Mouth Once a day (at bedtime) Contact prescribing physician if questions or concerns Pharmacy Information [id number]: [address], [place] [id number] [phone] Allergies No Known Allergies Problems Ongoing - Any problem that you are currently receiving treatment for. Chronic diarrhea Chronic GERD Generalized abdominal pain Ileitis Right lower quadrant abdominal pain Cfsqp-Afpumrrmx-Yhqbd syndrome Patient Survey You may receive a survey via text or e-mail asking about your office visit. Please share your experience with us by completing your survey. We appreciate your feedback and thank you for choosing us for your care. Normal [facility] Gastroenterology Office/Clin ic Noteon 11-27-2023 Gastroenterology Office/Clinic Note Gastroenterology Office/Clinic Note Chief Complaint ref by Mauri orozco HPI Staff Patient is a 33 year old male who was referred by LEXIS Le for Ileitis. Denies Fhx of colon cancer and IBD Denies Blood Thinners Denies GLP-1 Agonists abdominal pain- right upper quad- comes and goes, started 2 months ago diarrhea- intermitent, diagnosed with IBS-D at last colonoscopy 5-6 years ago at [place]- no records at today's visit [facility] ED: 09/28/2023 History of Present Illness HPI narrative: 33-year-old male presents to the emergency department for abdominal pain. It started in the epigastric area but now is moved into the right lower quadrant. It started today. No trauma fever or constipation. He states he had a little bit of diarrhea but not much. No left-sided pain. No chest pain or shortness of breath. The pain is moderate and continuous. No flank pain or dysuria or hematuria. CT abdomen pelvis w con: 09/28/2023 1. Very mild wall thickening in the terminal ileum may reflect mild infectious or inflammatory ileitis. No surrounding inflammatory change is seen. No other potential cause of right lower quadrant pain is seen. There are no other potential acute findings in the abdomen or pelvis. 2. Normal appendix. 3. Mild colonic diverticulosis. Amylase 43 25-115 Lipase 54.0 16.0-77.0 Liver Panel: 09/28/2023 Bilirubin Total 0.6 0.2-1.0 mg/dL Bilirubin Direct 0.1 0.0-0.2 mg/dL Aspartate Amino Transferase 19 15-37 U/L Alanine Aminotransferase 44 16-63 U/L Alkaline Phosphatase 96 46-116 U/L Total Protein 6.9 6.4-8.2 g/dL Albumin Level 3.8 3.4-5.0 g/dL Globulin 3.1 g/dL Albumin Globulin Ratio 1.2 CBC: 09/28/2023 White Blood Count 7.5 4.0-11.0 10 3/uL Red Blood Count 4.65 4.70-6.10 Low 10 6/uL Hemoglobin 13.6 14.0-18.0 Low g/dL Hematocrit 40.2 42.0-54.0 Low % Mean Corpuscular Volume 86.5 80.0-94.0 fL Mean Corpuscular Hemoglobin 29.2 25.9-34.0 pg Mean Corpuscular HGB Conc 33.8 29.9-35.2 g/dL Red Cell Distribution Width 11.8 11.0-15.0 % Platelet Count 234 150-450 10 3/uL Mean Platelet Volume 10.7 9.5-13.5 fL Neutrophils Percent Auto 47.6 43.0-75.0 % Lymphocytes Percent Auto 41.1 20.5-60.0 % Monocytes Percent Auto 7.8 1.7-12.0 % Eosinophils Percent Auto 2.3 0.9-7.0 % Basophils Percent Auto 0.8 0.2-2.0 % Immature Granulocytes Pct Auto 0.4 0.0-0.5 % Neutrophils Absolute Auto 3.6 1.4-6.5 10 3/uL Lymphocytes Absolute Auto 3.1 1.2-3.8 10 3/uL Monocytes Absolute Auto 0.6 0.3-0.8 10 3/uL Eosinophils Absolute Auto 0.2 0.0-0.7 10 3/uL Basophils Absolute Auto 0.1 0.0-0.1 10 3/uL Immature Granulocytes Abs Auto 0.03 0.00-0.03 10 3/uL GI Panel GIPANEL CONTROLS PASSED [facility] STACEY HEADER GI PANEL BACTERIA Campylobacter NOT DETECTED NOT DETECTED C. Diff toxin A/B NOT DETECTED NOT DETECTED P. Shigelloides NOT DETECTED NOT DETECTED Salmonella NOT DETECTED NOT DETECTED Vibrio NOT DETECTED NOT DETECTED Vibrio Cholera NOT DETECTED NOT DETECTED Y. Enterocolitica NOT DETECTED NOT DETECTED GIPNLHD ECOLI GI PANEL DIARRHEAGENIC E.COLI / SHIGELLA EAEC NOT DETECTED NOT DETECTED EPEC NOT DETECTED NOT DETECTED ETEC NOT DETECTED NOT DETECTED STEC NOT DETECTED NOT DETECTED E. Coli O157 Not Applicable Not Applicable EIEC NOT DETECTED NOT DETECTED GIPNLHD PARASITES GI PANEL PARASITES Cryptosporidium NOT DETECTED NOT DETECTED Cyclos. Cayetanensis NOT DETECTED NOT DETECTED E. histolytica NOT DETECTED NOT DETECTED G. Lamblia NOT DETECTED NOT DETECTED GIPNLHD VIRUS GI PANEL VIRUSES Adenovirus F 40/41 NOT DETECTED NOT DETECTED Astrovirus NOT DETECTED NOT DETECTED Norovirus GI/GII NOT DETECTED NOT DETECTED Rotavirus A DETECTED NOT DETECTED Abnormal Sapovirus NOT DETECTED NOT DETECTED PROCEDURE: EGD -03/02/2021 Procedure Indications: RUQ pain SURGICAL PATHOLOGY Given the background of chronic gastritis a Helicobacter pylori immunostain was performed on block B1 and is negative for Helicobacter pylori organisms. FINAL DIAGNOSIS 1. Small bowel, biopsy (A) - Duodenal mucosa with no diagnostic alteration. 2. Stomach, biopsy (B) - Chronic inactive gastritis. - Helicobacter pylori stain pending, the result will be reported as an addendum. 3. Stomach, polypectomy (C) - Fundic gland polyp. History of Present Illness I have reviewed HPI staff note, most recent labs and imaging, more than 30 minutes spent reviewing the chart, during encounter, placing orders and counseling the patient. pt with abd pain x 2 months in the right lower abd diarrhea for a while 5 BMs a day loose BMs no blood in stool colonoscopy done in 2018- not known results but reported to have diverticulosis heartburn on PPI for a long time no changes in his weight Review of Systems PHQ Score Initial Depression Screen Score: 0 SCORE All systems reviewed, negative except (more content not included)... Normal [facility] Comment on above: Result Comment: Elec tronically Signed By: Sherley LÓPEZ, Moise Scott\.br\Date and Time Signed: 11/27/23 12:36 EDT Provider Letteron 11-27-2023 Provider Letter Provider Letter November 27, 2023 EDWARD GOSS [address] [place] [id number] : 1990 To Whom It May Concern, Please excuse above patient from work ON 12-10-23 due to preparations needed for a scheduled procedure on 12-11-23. Edward may return to work as usual on 12-12-23 if needed. Please contact our office at [phone] with any questions or concerns. Sincerely, [facility] Normal [facility] CBC W MANUAL DIFFon 10-25-19 23 ATYPICAL LYMPH # Normal [facility] Comment on above: Performed By: #### C ESTEFANÍA #### [facility] [address] [place] [address] Dr. Luis Abraham ATYPICAL LYMPH % Normal [facility] Comment on above: Performed By: #### C ESTEFANÍA #### [facility] [address] [place] [address] Dr. Luis Abraham BAND # 0.2 103/ul Normal 0.0-0.3 [facility] Comment on above: Performed By: #### C ESTEFANÍA #### [facility] [address] [place] [address] Dr. Luis Abraham BAND % 2 % Normal 0-5 [facility] Comment on above: Performed By: #### C ESTEFANÍA #### [facility] [address] [place] [address] Dr. Luis Abraham BASOM # 0.00 103/ul Normal 0.00-0.10 [facility] Comment on above: Performed By: #### C ESTEFANÍA #### [facility] [address] [place] [address] Dr. Luis Abraham BASOM % 0.0 % Critically low 0.2-2.0 [facility] Comment on above: Performed By: #### C ESTEFANÍA #### [facility] [address] [place] [address] Dr. Luis Abraham BLAST # Normal [facility] Comment on above: Performed By: #### C ESTEFANÍA #### [facility] [address] [place] [address] Dr. Luis Abraham BLAST % Normal [facility] Comment on above: Performed By: #### C ESTEFANÍA #### [facility] [address] [place] [address] Dr. Luis Abraham CORRECTED WBC Normal 4.0-11.0 [facility] Comment on above: Performed By: #### C ESTEFANÍA #### [facility] [address] [address] [address] Luis Abraham EOS # 0.26 103/ul Normal 0.00-0.70 [facility] Comment on above: Performed By: #### C ESTEFANÍA #### [facility] [address] [place] [address] Dr. Luis Abraham EOS% 3.0 % Normal 0.9-7.0 [facility] Comment on above: Performed By: #### C ESTEFANÍA #### [facility] [address] [place] [address] Dr. Luis Abraham HCT 43.8 % Normal 42.0-54.0 [facility] Comment on above: Performed By: #### C ESTEFANÍA #### [facility] [address] [place] [address] Dr. Luis Abraham HGB 15.1 g/dl Normal 14.0-18.0 [facility] Comment on above: Performed By: #### Cindi JOSÉ #### [facility] [address] [place] [address] Dr. Luis Abraham LYMPHM # 0.52 103/ul Critically low 1.20-3.80 [facility] Comment on above: Performed By: #### C ESTEFANÍA #### [facility] [address] [place] [address] Dr. Luis Abraham LYMPHM% 6.0 % Critically low 20.5-60.0 [facility] Comment on above: Performed By: #### Cindi JOSÉ #### [facility] [address] [place] [address] Dr. Luis Abraham MCH 29.3 pg Normal 25.9-34.0 [facility] Comment on above: Performed By: #### Cindi JOSÉ #### [facility] [address] [place] [address] Dr. Luis Abraham MCHC 34.5 g/dl Normal 29.9-35.2 [facility] Comment on above: Performed By: #### Cindi JOSÉ #### [facility] [address] [place] [address] Dr. Luis Abraham MCV 84.9 fL Normal 80.0-94.0 [facility] Comment on above: Performed By: #### C BCMAN #### [facility] [address] [place] [address] Dr. Luis Abraham METAMYELOCYTE # Normal [facility] Comment on above: Performed By: #### C BCMAN #### [facility] [address] [place] [address] Dr. Luis Abraham METAMYELOCYTE % Normal [facility] Comment on above: Performed By: #### C BCMAN #### [facility] [address] [place] [address] Dr. Luis Abraham MONOM# 0.61 103/ul Normal 0.30-0.80 [facility] Comment on above: Performed By: #### C BCMAN #### [facility] [address] [place] [address] Dr. Luis Abraham MONOM% 7.0 % Normal 1.7-12.0 [facility] Comment on above: Performed By: #### C BCMAN #### [facility] [address] [place] [address] Dr. Luis Abraham MPV 10.6 fL Normal 9.5-13.5 [facility] Comment on above: Performed By: #### C ESTEFANÍA #### [facility] [address] [place] [address] Dr. Luis Abraham MYELOCYTE # Normal [facility] Comment on above: Performed By: #### C BCJASON #### [facility] [address] [place] [address] Dr. Luis Abraham MYELOCYTE % Normal [facility] Comment on above: Performed By: #### C BCJASON #### [facility] [address] [place] [address] Dr. Luis Abraham NRBC Normal [facility] Comment on above: Performed By: #### C BCJASON #### [facility] [address] [place] [address] Dr. Luis Abraham PLT 207 103/ul Normal 150-450 [facility] Comment on above: Performed By: #### C BCMAN #### [facility] [address] [place] [address] Dr. Luis Abraham RBC 5.16 106/ul Normal 4.70-6.10 [facility] Comment on above: Performed By: #### C ESTEFANÍA #### [facility] [address] [place] [address] Dr. Luis Abraham RDW 11.8 % Normal 11.0-15.0 [facility] Comment on above: Performed By: #### C ESTEFANÍA #### [facility] [address] [place] [address] Dr. Luis Abraham SEG # 7.13 103/ul Critically high 1.40-6.50 [facility] Comment on above: Performed By: #### C ESTEFANÍA #### [facility] [address] [place] [address] Dr. Luis Abraham SEG % 82.0 % Critically high 43.0-75.0 [facility] Comment on above: Performed By: #### C ESTEFANÍA #### [facility] [address] [place] [address] Dr. Luis Abraham WBC 8.7 103/ul Normal 4.0-11.0 [facility] Comment on above: Performed By: #### Cindi JOSÉ #### [facility] [address] [place] [address] Dr. Luis Abraham ER URINE PROFILEon 3 Bilirubin Ql (U) Negative Normal NEGATIVE [facility] Comment on above: Performed By: #### E RUR #### [facility] [address] [place] [address] Dr. Luis Abraham Clarity (U) CLEAR Normal CLEAR [facility] Comment on above: Performed By: #### E RUR #### [facility] [address] [place] [address] Dr. Luis Abraham Color (U) YELLOW Normal YELLOW [facility] Comment on above: Performed By: #### E RUR #### [facility] [address] [place] [address] Dr. Luis Abraham ERUPATRICK A micrscopic examina tion will be performed if indicated. Normal [facility] Comment on above: Performed By: #### E RUR #### [facility] [address] [place] [address] Dr. Luis Abraham Glucose Ql (U) Negative Normal NEGATIVE [facility] Comment on above: Performed By: #### E RUR #### [facility] [address] [place] [address] Dr. Luis Abraham Hemoglobin Ql (U) Negative Normal NEGATIVE [facility] Comment on above: Performed By: #### E RUR #### [facility] [address] [place] [address] Dr. Luis Abraham Ketones Ql (U) Negative Normal NEGATIVE [facility] Comment on above: Performed By: #### E RUR #### [facility] [address] [place] [address] Dr. Luis Abraham LEUKOCYTES Negative Normal NEGATIVE [facility] Comment on above: Performed By: #### E RUR #### [facility] [address] [place] [address] Dr. Luis Abraham Nitrite Ql (U) Negative Normal NEGATIVE [facility] Comment on above: Performed By: #### E RUR #### [facility] [address] [place] [address] Dr. Luis Abraham pH (U) 6.0 [pH] Normal 5-9 [facility] Comment on above: Performed By: #### E RUR #### [facility] [address] [place] [address] Dr. Luis Abraham SPEC GRAVITY 1.030 Abnormal 1.005-<=1.0 25 [facility] Comment on above: Performed By: #### E RUR #### [facility] [address] [place] [address] Dr. Luis Abraham UA PROTEIN TRACE Normal NEGATIVE/ TRACE [facility] Comment on above: Performed By: #### E RUR #### [facility] [address] [place] [address] Dr. Luis Abraham UR MICRO IND NOT INDICATED Normal [facility] Comment on above: Performed By: #### E RUR #### [facility] [address] [address] [address] Luis Abraham Urobilinogen Qn (U) 0.2 {Brody'U}/dL Normal 0.2 - 1. 0 [facility] Comment on above: Performed By: #### E RUR #### [facility] [address] [address] [address] Luis Abraham GI PANEL (PCR)on 10-24-2022 Adenovirus F 40/41 Not detected Normal NOT DETECTED [facility] Comment on above: Performed By: #### G IPANEL ####[facility] [address] [place], [place] [address]Dr. Luis Abraham Astrovirus Not detected Normal NOT DETECTED [facility] Comment on above: Performed By: #### G IPANEL ####[facility] [address] [place], [place] [address]Dr. Luis Abraham C. Diff toxin A/B Not detected Normal NOT DETECTED [facility] Comment on above: Performed By: #### G IPANEL ####[facility] [address] [place], [place] [address]Dr. Luis Abraham Campylobacter Not detected Normal NOT DETECTED [facility] Comment on above: Performed By: #### G IPANEL ####[facility] [address] [place], [place] [address]Dr. Luis Abraham Cryptosporidium Not detected Normal NOT DETECTED [facility] Comment on above: Performed By: #### G IPANEL ####[facility] [address] [place], [place] [address]Dr. Luis Abraham Cyclos. Cayetanensis Not detected Normal NOT DETECTED [facility] Comment on above: Performed By: #### G IPANEL ####[facility] [address] [place], [place] [address]Dr. Luis Abraham E. Coli O157 Not Applicable Normal Not Applicable [facility] Comment on above: Performed By: #### G IPANEL ####[facility] [address] [place], [place] [address]Dr. Luis Abraham E. histolytica Not detected Normal NOT DETECTED [facility] Comment on above: Performed By: #### G IPANEL ####[facility] [address] [address]Dr. Luis Abraham EAEC Not detected Normal NOT DETECTED [facility] Comment on above: Performed By: #### G IPANEL ####[facility] [address] [address]Dr. Luis Abraham EIEC Not detected Normal NOT DETECTED [facility] Comment on above: Performed By: #### G IPANEL ####[facility] [address] [place], [place] [address]Dr. Luis Abraham EPEC Not detected Normal NOT DETECTED [facility] Comment on above: Performed By: #### G IPANEL ####[facility] [address] [place], [place] [address]Dr. Luis Abraham ETEC Not detected Normal NOT DETECTED [facility] Comment on above: Performed By: #### G IPANEL ####[facility] [address] [place], [place] [address]Dr. Luis Abraham G. Lamblia Not detected Normal NOT DETECTED [facility] Comment on above: Performed By: #### G IPANEL ####[facility] [address] [place], [place] [address]Dr. Luis Abraham GIPANEL CONTROLS PASSED Normal [facility] Comment on above: Performed By: #### G IPANEL ####[facility] [address] [place], [place] [address]Dr. Luis DURANDNL STACEY HEADER GI PANEL BACTERIA Normal [facility] Comment on above: Performed By: #### G IPANEL ####[facility] [address] [address]Dr. Luis DURANDNLHD ECOLI GI PANEL DIARRHEAGEN IC E.COLI / SHIGELLA Normal [facility] Comment on above: Performed By: #### G IPANEL ####[facility] [address] [place], [place] [address]Dr. Luis Abraham GIPNLHD INFO SEE BELOW Normal [facility] Comment on above: Result Comment: EAEC - Enteroaggregative E. Coli EPEC- Enteropathogenic E. Coli ETEC- Enterotoxigenic E. Coli lt/st STEC- Shigella-like toxin-producing E. Coli stx1/stx2 EIEC- Shigella/Enteroinvasive E. Coli Performed By: #### G IPANEL ####[facility] [address] [place], [place] [address]Dr. Luis Abraham GIPNLHD PARASITES GI PANEL PARASITES Normal [facility] Comment on above: Performed By: #### G IPANEL ####[facility] [address] [place], [place] [address]Dr. Luis Abraham GIPNLHD VIRUS GI PANEL VIRUSES Normal [facility] Comment on above: Performed By: #### G IPANEL ####[facility] [address] [place], [place] [address]Dr. Luis Arbaham Norovirus GI/GII Not detected Normal NOT DETECTED [facility] Comment on above: Performed By: #### G IPANEL ####[facility] [address] [place], [place] [address]Dr. Luis Abraham P. Shigelloides Not detected Normal NOT DETECTED [facility] Comment on above: Performed By: #### G IPANEL ####[facility] [address] [place], [place] [address]Dr. Luis Abraham Rotavirus A Detected Abnormal NOT DETECTED [facility] Comment on above: Performed By: #### G IPANEL ####[facility] [address] [place], [place] [address]Dr. Luis Abraham Salmonella Not detected Normal NOT DETECTED [facility] Comment on above: Performed By: #### G IPANEL ####[facility] [address] [place], [place] [address]Dr. Luis Abraham Sapovirus Not detected Normal NOT DETECTED [facility] Comment on above: Performed By: #### G IPANEL ####[facility] [address] [place], [place] [address]Dr. Luis Abraham STEC Not detected Normal NOT DETECTED [facility] Comment on above: Performed By: #### G IPANEL ####[facility] [address] [place], [place] [address]Dr. Luis Abraham Vibrio Not detected Normal NOT DETECTED [facility] Comment on above: Performed By: #### G IPANEL ####[facility] [address] [address]Dr. Luis Abraham Vibrio Cholera Not detected Normal NOT DETECTED [facility] Comment on above: Performed By: #### G IPANEL ####[facility] [address] [address]Dr. Luis Abraham Y. Enterocolitica Not detected Normal NOT DETECTED [facility] Comment on above: Performed By: #### G IPANEL ####[facility] [address] [address]DrGabino Abraham LACTATE/LACTIC ACIDon 2022 Lactate [Moles/Vol] 1.6 mmol/L Normal 0.4-2.0 [facility] Comment on above: Performed By: #### L ACT #### [facility] [address] [place] [address] Dr. Luis Abraham LIPASEon 10-24-2022 Lipase [Catalytic activity/Vol] 88.0 U/L Normal 73.0-393.0 [facility] Comment on above: Performed By: #### L PATRICIA HSTROPN, CMP #### [facility] [address] [place] [address] Dr. Luis Abraham PROF 14(COMP METB)on 023 Albumin [Mass/Vol] 3.9 g/dL Normal 3.4-5.0 [facility] Comment on above: Performed By: #### L IPA HSTROPN, CMP #### [facility] [address] [place] [address] Dr. Luis Abraham Albumin/Globulin [Mass ratio] 1.1 {ratio} Normal [facility] Comment on above: Performed By: #### L IPA HSTROPN, CMP #### [facility] [address] [place] [address] Dr. Luis Abraham ALP [Catalytic activity/Vol] 102 U/L Normal 46-116 [facility] Comment on above: Performed By: #### L IPA HSTROPN, CMP #### [facility] [address] [place] [address] Dr. Luis Abraham ALT [Catalytic activity/Vol] 38 U/L Normal 16-63 [facility] Comment on above: Performed By: #### L IPA, HSTROPN, CMP #### [facility] [address] [place] [address] Dr. Luis Abraham Anion gap [Moles/Vol] 15.2 mmol/L Normal [facility] Comment on above: Performed By: #### L IPA, HSTROPN, CMP #### [facility] [address] [place] [address] Dr. Luis Abraham AST [Catalytic activity/Vol] 19 U/L Normal 15-37 [facility] Comment on above: Performed By: #### L IPA, HSTROPN, CMP #### [facility] [address] [place] [address] Dr. Luis Abraham Bilirubin [Mass/Vol] 0.7 mg/dL Normal 0.2-1.0 [facility] Comment on above: Performed By: #### L IPA, HSTROPN, CMP #### [facility] [address] [place] [address] Dr. Luis Abraham Calcium [Mass/Vol] 8.6 mg/dL Normal 8.5-10.1 [facility] Comment on above: Performed By: #### L IPA, HSTROPN, CMP #### [facility] [address] [place] [address] Dr. Luis Abraham Chloride [Moles/Vol] 101 mmol/L Normal 98-107 [facility] Comment on above: Performed By: #### L IPA, HSTROPN, CMP #### [facility] [address] [place] [address] Dr. Luis Abraham CO2 [Moles/Vol] 23.4 mmol/L Normal 21.0-32.0 [facility] Comment on above: Performed By: #### L IPA, HSTROPN, CMP #### [facility] [address] [place] [address] Dr. Luis Abraham Creatinine [Mass/Vol] 1.17 mg/dL Normal 0.70-1.30 [facility] Comment on above: Performed By: #### L IPA HSTROPN, CMP #### [facility] [address] [place] [address] Dr. Luis Abraham EGFR-AF TRINIDADIAN >60 Normal >=60 [facility] Comment on above: Performed By: #### L IPA HSTROPN, CMP #### [facility] [address] [address] [address] Luis Abraham EGFR-NON AF TRINIDADIAN >60 Normal >=60 [facility] Comment on above: Performed By: #### L IPA HSTROPN, CMP #### [facility] [address] [place] [address] Dr. Luis Abraham Globulin (S) [Mass/Vol] 3.7 g/dL Normal [facility] Comment on above: Performed By: #### L IPA HSTROPN, CMP #### [facility] [address] [place] [address] Dr. Luis Abraham Glucose [Mass/Vol] 129 mg/dL Critically high 74-106 [facility] Comment on above: Performed By: #### L IPA HSTROPN, CMP #### [facility] [address] [place] [address] Dr. Luis Abraham Potassium [Moles/Vol] 3.6 mmol/L Normal 3.5-5.1 [facility] Comment on above: Performed By: #### L IPA HSTROPN, CMP #### [facility] [address] [place] [address] Dr. Luis Abraham Protein [Mass/Vol] 7.6 g/dL Normal 6.4-8.2 [facility] Comment on above: Performed By: #### L IPA HSTROPN, CMP #### [facility] [address] [place] [address] Dr. Luis Abraham Sodium [Moles/Vol] 136 mmol/L Normal 136-145 [facility] Comment on above: Performed By: #### L IPA HSTROPN, CMP #### [facility] [address] [place] [address] Dr. Luis Abraham Urea nitrogen [Mass/Vol] 22.0 mg/dL Critically high 7.0-18 .0 [facility] Comment on above: Performed By: #### L IPA, HSTROPN, CMP #### [facility] [address] [place] [address] Dr. Luis Abraham Urea nitrogen/Creatinine [Mass ratio] 18.8 mg/mg Normal [facility] Comment on above: Performed By: #### L IPA, HSTROPN, CMP #### [facility] [address] [place] [address] Dr. Luis Abraham STREPT SCREENon 10-24-2022 STREP SCREEN A Negative Normal NEGATIVE [facility] Comment on above: Performed By: #### S SCRN #### [facility] [address] [place] [address] Dr. Luis Abraham TROPONIN, HIGH SENSITIVITYon 10-24-2022 HSTROP <4.0 Normal 4.0-76.1 [facility] Comment on above: Result Comment: CUT- OFF POINTS HAVE BEEN ESTABLISHED BASED ON THE FOURTH UNIVERSAL DEFINITIONS OF MYOCARDIAL INFARCTION. THE UPPER REFERENCE LIMIT (URL) OF TROPONIN, DEFINED THE 99TH PERCENTILE OF cTnI DISTRIBUTION IN A REFERENCE POPULATION, HAS BEEN CONFIRMED THE DECISION THRESHOLD FOR HI DIAGNOSIS. Performed By: #### L IPA, HSTROPN, CMP #### [facility] [address] [place] [address] Dr. Luis Abraham CBC AUTO DIFFon 06-18-2022 BASO # 0.1 103/ul Normal 0.0-0.1 [facility] Comment on above: Performed By: #### C BC #### [facility] [address] [place] [address] Dr. Luis Abraham Basophils/100 WBC (Bld) 0.8 % Normal 0.2-2.0 [facility] Comment on above: Performed By: #### C BC #### [facility] [address] [place] [address] Dr. Luis Abraham EO # 0.1 103/ul Normal 0.0-0.7 [facility] Comment on above: Performed By: #### C BC #### [facility] [address] [place] [address] Dr. Luis Abraham Eosinophils/100 WBC (Bld) 1.4 % Normal 0.9-7.0 [facility] Comment on above: Performed By: #### C BC #### [facility] [address] [place] [address] Dr. Luis Abraham Erythrocyte distribution width (RBC) [Ratio] 12.1 % Normal 11.0-15.0 [facility] Comment on above: Performed By: #### C BC #### [facility] [address] [place] [address] Dr. Luis Abraham Hematocrit (Bld) [Volume fraction] 40.5 % Critically low 42.0-54.0 [facility] Comment on above: Performed By: #### C BC #### [facility] [address] [place] [address] Dr. Luis Abraham Hemoglobin (Bld) [Mass/Vol] 14.5 g/dL Normal 14.0-18.0 [facility] Comment on above: Performed By: #### C BC #### [facility] [address] [place] [address] Dr. Luis Abraham IG # 0.03 10e3/ul Normal 0.00-0.03 [facility] Comment on above: Performed By: #### C BC #### [facility] [address] [place] [address] Dr. Luis Abraham IG % 0.5 % Normal 0.0-0.5 [facility] Comment on above: Performed By: #### C BC #### [facility] [address] [place] [address] Dr. Luis Abraham LYMPH # 2.0 103/ul Normal 1.2-3.8 [facility] Comment on above: Performed By: #### C BC #### [facility] [address] [place] [address] Dr. Lius Abraham Lymphocytes/100 WBC (Bld) 30.4 % Normal 20.5-60.0 [facility] Comment on above: Performed By: #### C BC #### [facility] [address] [place] [address] Dr. Luis Abraham MANUAL DIFF REQ NO Normal [facility] Comment on above: Performed By: #### C BC #### [facility] [address] [place] [address] Dr. Luis Abraham MCH (RBC) [Entitic mass] 29.7 pg Normal 25.9-34.0 [facility] Comment on above: Performed By: #### C BC #### [facility] [address] [place] [address] Dr. Luis Abraham MCHC (RBC) [Mass/Vol] 35.8 g/dL Critically high 29.9-35.2 [facility] Comment on above: Performed By: #### C BC #### [facility] [address] [place] [address] Dr. Luis Abraham MCV (RBC) [Entitic vol] 82.8 fL Normal 80.0-94.0 [facility] Comment on above: Performed By: #### C BC #### [facility] [address] [place] [address] Dr. Luis Abraham MONO # 0.4 103/ul Normal 0.3-0.8 [facility] Comment on above: Performed By: #### C BC #### [facility] [address] [place] [address] Dr. Luis Abraham Monocytes/100 WBC (Bld) 6.5 % Normal 1.7-12.0 [facility] Comment on above: Performed By: #### C BC #### [facility] [address] [place] [address] Dr. Luis Abraham NEUT # 3.9 103/ul Normal 1.4-6.5 [facility] Comment on above: Performed By: #### C BC #### [facility] [address] [place] [address] Dr. Luis Abraham Neutrophils/100 WBC (Bld) 60.4 % Normal 43.0-75.0 [facility] Comment on above: Performed By: #### C BC #### [facility] [address] [place] [address] Dr. Luis Abraham Platelet mean volume (Bld) [Entitic vol] 10.4 fL Normal 9.5-13.5 [facility] Comment on above: Performed By: #### C BC #### [facility] [address] [place] [address] Dr. Luis Abraham PLT 217 103/ul Normal 150-450 [facility] Comment on above: Performed By: #### C BC #### [facility] [address] [place] [address] Dr. Luis Abraham RBC 4.89 106/ul Normal 4.70-6.10 [facility] Comment on above: Performed By: #### C BC #### [facility] [address] [place] [address] Dr. Luis Abraham WBC 6.5 103/ul Normal 4.0-11.0 [facility] Comment on above: Performed By: #### C BC #### [facility] [address] [place] [address] HEAD WO CONon 06-18-2022 CT HEAD WO CON EXAMINATION: CT HEAD WO CON HISTORY: dizziness COMPARISON: None. TECHNIQUE: CT examination of the head without IV contrast. Dose reduction techniques were achieved by using automated exposure control and/or adjustment of mA and/or kV according to patient size and/or use of iterative reconstruction technique. FINDINGS: No acute intracranial hemorrhage. No acute loss of king/white differentiation. The ventricles and sulci are normal in appearance. The osseous structures are unremarkable. No soft tissue abnormality identified. The paranasal sinuses and mastoid air cells are clear. IMPRESSION: 1. No acute intracranial abnormality. Electronically authenticated by: BRYAN MARTINEZ Date: 2022-06-18 13:58 Normal [facility] PROF CHEM 8 (BAS METB)on Anion gap [Moles/Vol] 12.7 mmol/L Normal [facility] Comment on above: Performed By: #### B MP #### [facility] [address] [address] [address] Luis Abraham Calcium [Mass/Vol] 9.1 mg/dL Normal 8.5-10.1 [facility] Comment on above: Performed By: #### B MP #### [facility] [address] [place] [address] Dr. Luis Abraham Chloride [Moles/Vol] 104 mmol/L Normal 98-107 [facility] Comment on above: Performed By: #### B MP #### [facility] [address] [address] [address] Luis Abraham CO2 [Moles/Vol] 29.5 mmol/L Normal 21.0-32.0 [facility] Comment on above: Performed By: #### B MP #### [facility] [address] [place] [address] Dr. Luis Abraham Creatinine [Mass/Vol] 0.83 mg/dL Normal 0.70-1.30 [facility] Comment on above: Performed By: #### B MP #### [facility] [address] [place] [address] Dr. Luis Abraham EGFR-AF TRINIDADIAN >60 Normal >=60 [facility] Comment on above: Performed By: #### B MP #### [facility] [address] [place] [address] Dr. Luis Abraham EGFR-NON AF TRINIDADIAN >60 Normal >=60 [facility] Comment on above: Performed By: #### B MP #### [facility] [address] [place] [address] Dr. Luis Abraham Glucose [Mass/Vol] 94 mg/dL Normal 74-106 [facility] Comment on above: Performed By: #### B MP #### [facility] [address] [address] [address] Luis Abraham Potassium [Moles/Vol] 4.2 mmol/L Normal 3.5-5.1 [facility] Comment on above: Performed By: #### B MP #### [facility] [address] [address] [address] Luis Abraham Sodium [Moles/Vol] 142 mmol/L Normal 136-145 [facility] Comment on above: Performed By: #### B MP #### [facility] [address] [address] [address] Luis Abraham Urea nitrogen [Mass/Vol] 18.0 mg/dL Normal 7.0-18.0 [facility] Comment on above: Performed By: #### B MP #### [facility] [address] [address] [address] Luis Abraham Urea nitrogen/Creatinine [Mass ratio] 21.7 mg/mg Normal [facility] Comment on above: Performed By: #### B MP #### [facility] [address] [address] [address] Luis Self 03-31-2021 CNPN Telephone (GGENMN) ----- EDWARD GOSS ([id number]) 1990 M Date Time Provider Department 03/31/21 NGOC HOLT During your visit today, we recorded the following information about you: Nu [facility] 03/31/2021 3:37 PM Signed Patient had CT done. Wants to know next steps of care Marcial Ochoa RN 03/31/2021 4:03 PM Signed Left patient a to schedule a virtual with Dr. Holt next Saturday around 9 if possible regarding next plan of care Allergies As of Date: 03/31/2021 (No Known Allergies) Date Reviewed: 02/27/2021 Reviewed by: Jackeline Daniel RN - Fully Assessed Reason for Visit: Returning Patient's Call [408] Prescriptions as of 03/31/2021 - METOPROLOL TARTRATE 25 MG TAB Take one(1) tablet twice daily. - FLECAINIDE 100 MG TAB as necessary Problem List As Of Date 03/31/2021 Noted Resolved DEPRESSIVE DISORDER NEC [F32.9] 06/19/2007 Right upper quadrant pain [R10.11] 02/17/2021 Encounter Status:Closed by MARCIAL OCHOA on 03/31/21 [facility] CNPN Telephone (GGENMN) ----- EDWARD GOSS ([id number]) 1990 M Date Time Provider Department 03/31/21 NGOC HOLT GGENMN During your visit today, we recorded the following information about you: Nu [facility] 03/31/2021 4:26 PM Signed Call center called regarding trying to schedule patient for virtual visit for 04/04. Patient contacted call center but didn't have the time that Dr. Holt would do the virtual on 04/04. Marcial Ochoa RN 03/31/2021 4:32 PM Signed Will schedule a virtual at 3 pm on 04/04 after patient works Allergies As of Date: 03/31/2021 (No Known Allergies) Date Reviewed: 02/27/2021 Reviewed by: Jackeline Daniel RN - Fully Assessed Reason for Visit: Returning Patient's Call [408] Prescriptions as of 03/31/2021 - METOPROLOL TARTRATE 25 MG TAB Take one(1) tablet twice daily. - FLECAINIDE 100 MG TAB as necessary Problem List As Of Date 03/31/2021 Noted Resolved DEPRESSIVE DISORDER NEC [F32.9] 06/19/2007 Right upper quadrant pain [R10.11] 02/17/2021 Encounter Status:Closed by MARCIAL OCHOA on 03/31/21 [facility] NM HEPATOBILIARY W EF AND/OR RXon 03-13-2021 NM HEPATOBILIARY W EF AND/OR RX * * *Final Report* * * DATE OF EXAM: Mar 13 2021 11:30AM N 0021 - NM HEPATOBILIARY W EF AND/OR RX / PROCEDURE REASON: Right upper quadrant pain * * * * Physician Interpretation * * * * HEPATOBILIARY SCAN WITH GALLBLADDER EJECTION FRACTION: CLINICAL HISTORY: Abdominal pain. TECHNIQUE: 5.6 mCi Tc-99m IV. Followed by 60 minutes of abdominal imaging. 8 oz Ensure P. O., followed by additional 45 minutes of imaging. RESULTS: There is prompt and homogeneous uptake by the liver, which appears grossly normal in size and shape. Gallbladder activity is visualized by 6 minutes, indicating cystic duct patency. Proximal small bowel activity is noted by 46 minutes, indicating common bile duct patency. After oral intake of Ensure, there is prompt emptying from the gallbladder with a calculated gallbladder ejection fraction of 71% (normal >35%). There is no evidence of duodenal gastric reflux. IMPRESSION: NORMAL HIDA SCAN WITH NORMAL GALLBLADDER EJECTION FRACTION. Sleeve Bottom Feller: PSCB Transcribe Date/Time: Mar 13 2021 12:26P Dictated by : BANG SANDS MD This examination was interpreted and the report reviewed and electronically signed by: BANG SANDS MD on Mar 13 2021 12:27PM EST [id number] Normal [facility] HISTORY PHYSICALon HISTORY PHYSICAL HNO ID: [id number] Author: Darvin Guajardo MD Service: Gastroenterology Author Type: Physician Type: HANDP Filed: 02/27/2021 8:01 AM Note Text: UPDATED PROCEDURAL SEDATION HISTORY AND PHYSICAL EXAMINATION SERVICE DATE: 02/27/2021 SERVICE TIME: 8 AM PHYSICAL EXAM MUST BE COMPLETED ON ADMISSION PROCEDURE: EGD Procedure Indications: RUQ pain The History and Physical (completed in the past 30 days) has been reviewed and the patient has been examined. The contents accurately reflect the patient's condition with the following additions or revisions since the HANDP was completed. ASA Class: ASA Class:: Normal healthy patient Examination indicates no changes. AIRWAY: Airway Visualization of Uvula: Yes Mouth opening greater than 2 fingerbreadths: Yes Neck Full Range of Motion: Yes LUNGS: Lungs clear to auscultation CARDIAC: Regular rhythm,Regular rate Provisional Diagnosis/Treatment Plan: EGD with biopsies SEDATION GOAL: Moderate This HANDP can be found in the attached. SIGNATURE: Darvin Guajardo MD PATIENT NAME: Edward Goss DATE: February 27, 2021 TIME: 8:01 AM Normal [facility] NURSING PROGon 02-27-2021 NURSING PROG HNO ID: [id number] Author: Jackeline Daniel RN Service: ? Author Type: Registered Nurse Type: Nursing Progress Note Filed: 02/27/2021 8:34 AM Note Text: AMBULATORY PATIENT EDUCATION NOTE TOPIC: GI PROCEDURES: Esophagogastroduodenoscop y(EGD) with or without biopies based on clinical findings, removal of polyps or lesions READINESS TO LEARN INSTRUCTION PROVIDED TO: Patient, readness to learn accessed prior to procedure COGNITIVE ABILITY: Alert and oriented PTED MOTIVATION TO LEARN: Eager FAMILY SUPPORT: Moderate - Family present but overwhelmed IPATIENT LEARNS BEST BY: Individual Instruction FACTORS AFFECTING LEARNING: None PHYSICAL LIMITATIONS AFFECTING LEARNING: None LEARNING RESPONSE METHOD OF INSTRUCTION: Individual instruction PATIENT / FAMILY RESPONSE: Verbalizes understanding of: WORSENING CONDITION-Signs and symptoms of a worsening condition that warrant a call to the physician FOLLOW-UP PLAN: Patient instructed to call with any further issues SUPPLEMENTAL MATERIAL: Procedure Discharge Instructions REFERRAL (RECOMMENDATION): None Electronically Signed By: Jackeline Daniel LPN [facility] NURSING PRO HNO ID: [id number] Author: Delmi Dia RN Service: ? Author Type: Registered Nurse Type: Nursing Progress Note Filed: 02/27/2021 8:08 AM Note Text: PRE OP LEARNING ASSESSMENT PROCEDURE/SURGERY: GI PROCEDURES: EGD READINESS TO LEARN COGNITIVE ABILITY: Alert and oriented MOTIVATION TO LEARN: Eager Interested FAMILY SUPPORT: High - Very involved in pt care PATIENT LEARNS BEST BY: Individual Instruction Verbal Instruction FACTORS AFFECTING LEARNING: None PHYSICAL LIMITATIONS AFFECTING LEARNING: None Electronically Signed By: Delmi Dia RN In Department: GASTROENTEROLOGY Normal [facility] SURGICAL PATHOLOGYon SURGICAL PATHOLOGY ADDENDUM PRESENT Specimen originated from [facility] Specimen #: [id number] Submitting Physician: DARVIN GUAJARDO MD FINAL DIAGNOSIS 1. Small bowel, biopsy (A) - Duodenal mucosa with no diagnostic alteration. 2. Stomach, biopsy (B) - Chronic inactive gastritis. - Helicobacter pylori stain pending, the result will be reported as an addendum. 3. Stomach, polypectomy (C) - Fundic gland polyp. DSA/dkmarixa 02/28/2021 Jennifer Gonzalez M.D. (Electronic Signature) SPECIMEN SUBMITTED A: SMALL BOWEL, BIOPSY B: STOMACH, BIOPSY C: GASTRIC POLYP, BIOPSY ADDENDUM Date Ordered: 03/02/2021 Date Reported: 03/03/2021 Given the background of chronic gastritis a Helicobacter pylori immunostain was performed on block B1 and is negative for Helicobacter pylori organisms. DSA/mm 03/02/2021 Laboratory Developed Test (LDT) Disclaimer: Positive and negative controls stain appropriately. Performance characteristics of immunohistochemical, immunofluorescent and chromogenic in-situ hybridization tests have been determined by [facility] [place] ([facility]) in a manner consistent with CLIA requirements. One or more of these tests have not been cleared or approved by the FDA. [facility] is regulated under CLIA as qualified to perform high-complexity testing. These tests are used for clinical purposes. They should not be regarded as investigational or for research. Addendum Pathologist: Jennifer Gonzalez M.D. Electronic Signature CLINICAL DATA ABDOMINAL PAIN A: R/O CELIAC B: R/O H. PYLORI C: R/O DYSPLASIA GROSS DESCRIPTION A. Received in formalin are multiple pieces of goldsmith, soft tissue aggregating to 0.8 x 0.5 x 0.2 cm. Totally submitted in one cassette. B. Received in formalin are multiple pieces of goldsmith, soft tissue aggregating to 1.0 x 0.5 x 0.2 cm. Totally submitted in one cassette. C. Received in formalin is one piece of goldsmith, soft tissue measuring 0.5 x 0.3 x 0.2 cm. Totally submitted in one cassette. Gross examination performed at [facility], [address] [place] [address] 02/27/2021 2:55:14 PM Date of Report: 02/28/2021 Date of Procedure: 02/27/2021 Date of Receipt: 02/27/2021 Submitted by: DARVIN GUAJARDO MD Location: [facility] PROC A3 Diagnostic interpretation performed at [place] [address]. CLIA Number: [id number] Normal [facility] CNCOon 02-22-2021 CNCO Letter Text Normal [facility] CNOVon 02-17-2021 CNOV Office Visit (GENKIERRAN ) ----- EDWARD GOSS ([id number]) 1990 M Date Time Provider Department 02/17/21 12:00 PM NGOC HOLT During your visit today, we recorded the following information about you: Temperature Pulse Respiration Blood pressure 98.1 degrees 80/minute 12/minute 112/69 Weight Height 75.3 kg 1.753 m J Luis Holt 02/17/2021 12:22 PM Signed What is the reason for your visit today? Consult Who is your referring physician? Dr. De Leon Are you having poor oral intake? NO Have you had unintentional weight loss of 15 lbs/7 Kg in the last 3-6 months? NO Bowels: regular Wound: clean AND dry Temperature: No Drains: No Juan David Callejas MD 02/17/2021 3:02 PM Signed HPB - OUTPATIENT CLINIC NOTE PATIENT NAME: Edward Goss DATE of SERVICE: February 17, 2021 TIME of SERVICE: 12:26 PM PCP: Buzz De Leon MD SUBJECTIVE Mr. Goss is a 30 year old male PMHx WPW s/p ablations x3 who presents to clinic for evaluation of R sided abdominal pain. Patient states he has been having postprandial epigastric pain, bloating/gas pain. Pain originally started approximately 1 year prior to presentation with increasing severity over past several months. Does have history of IBS-D, but states that the discomfort he currently reports is different in character/quality/locatio n. Endorses discomfort is particularly after greasy foods. Pain limits movement/mobility. No previous upper endoscopies in past. Normal bowel function/movements per patient. Denies fevers/chills, nausea/vomiting, chest pain, dyspnea. No smoking history. Limited EtOH use. No previous abdominal surgeries in the past. Does present to clinic with OSH records including RUQ US which demonstrated a 3mm GB polyp; no CBD dilation, no cholelithiasis. PAST MEDICAL HISTORY: PAST MEDICAL HISTORY Diagnosis Date - Depression - SVT (Supraventricular Tachycardia) PAST SURGICAL HISTORY: PAST SURGICAL HISTORY Procedure Laterality Date - DENTAL SURGERY PROCEDURE wisdom teeth, tooth extraction - EPS: SVT/VT ABLATION 03/04 and 05/04 SVT RFA - PAST SURGICAL HISTORY OF 2003 excision of breast tissue - REPAIR SLIDING INGUINAL HERNIA 1990 right FAMILY HISTORY: FAMILY HISTORY Problem Relation Age of Onset - Hypertension Father - Breast Cancer Paternal Grandmother - Cervical Cancer Mother - Hypertension Paternal Grandfather - Stroke Father age 43 - Stroke Paternal Grandfather SOCIAL HISTORY: Social History Tobacco Use - Smoking status: Never Smoker Substance Use Topics - Alcohol use: No - Drug use: No REVIEW OF SYSTEMS PAIN ASSESSMENT: CURRENTLY HAVING PAIN; see HPI GENERAL: No weight loss, malaise or fevers HEENT: Negative for frequent or significant headaches, No changes in hearing or vision, no nose bleeds or other nasal problems NECK: Negative for lumps, goiter, pain and significant neck swelling RESPIRATORY: Negative for cough, hemoptysis, wheezing, COPD, dyspnea or shortness of breath CARDIOVASCULAR: see HPI GI: see HPI : No history of dysuria, frequency or incontinence COMMERCIAL LITIGATION PARALEGAL: N/A MUSCULOSKELETAL: Negative for joint pain or swelling, back pain or muscle pain SKIN: Negative for lesions, rash, and itching PSYCH: Negative for sleep disturbance, mood disorder and recent psychosocial stressors HEMATOLOGY/LYMPHOLOGY: Negative for prolonged bleeding, bruising easily or swollen nodes ENDOCRINE: Negative for cold or heat intolerance, polyuria, polydipsia and goiter NEURO: No history of headaches, syncope, paralysis, seizures or tremors OBJECTIVE BP 112/69 Pulse 80 Temp 36.7 ?C (98.1 ?F) (Temporal) Resp 12 Ht 175.3 cm (5' 9 ) Wt 75.3 kg (166 lb) BMI 24.51 kg/m? General: not in acute distress CV: regular rate Pulm: good respiratory effort Abd: soft, non distended, mildly tender R > L abdomen, no rebound/guarding, LABS: None recent ASSESSMENT/PLAN Mr. Goss is a 30 year old male PMHx WPW s/p ablations x3 who presents to clinic for evaluation of R sided abdominal pain. Presentation unclear etiology for R sided abdominal pain. Will start with preliminary investigations/studies to further delineate etiology: - HIDA scan - If HIDA scan negative, consider EGD w/biopsies - further surgical intervention pending above - RTC with results of above studies Juan David Callejas MD, PhD General Surgery PGY4 Pager: [phone] Ngoc Holt MD 02/17/2021 3:02 PM Signed Addendum: I have reviewed the history and physical examination obtained and documented by the resident/fellow/PA and I personally participated in the hamm components. I have discussed the case and management of the patient's care. The following comments revise or confirm relevant hamm components of the note. CC: Abdominal pain HPI: Patient having some gas and discomfort in his abdomen. He states it is (more content not included)... Normal [facility] Vital Signs Date Time Vital Sign Value Performing Clinician Facility 12-11-2023 11:55-0400 Diastolic blood pressure 89 mm[Hg] Moise Lepe [facility] 12-11-2023 11:55-0400 Heart rate 70 /min Moise Lepe [facility] 12-11-2023 11:55-0400 Respiratory rate 22 /min Mohamad Mouchli [facility] 12-11-2023 11:55-0400 SaO2% (BldA) [Mass fraction] 98 % Mohamad Mouchli [facility] 12-11-2023 11:55-0400 Systolic blood pressure 125 mm[Hg] Mohamad Mouchli [facility] 12-11-2023 11:40-0400 Diastolic blood pressure 86 mm[Hg] Mohamad Mouchli [facility] 12-11-2023 11:40-0400 Heart rate 75 /min Mohamad Mouchli [facility] 12-11-2023 11:40-0400 Respiratory rate 18 /min Mohamad Mouchli [facility] 12-11-2023 11:40-0400 SaO2% (BldA) [Mass fraction] 97 % Mohamad Mouchli [facility] 12-11-2023 11:40-0400 Systolic blood pressure 134 mm[Hg] Mohamad Mouchli [facility] 12-11-2023 11:35-0400 Diastolic blood pressure 87 mm[Hg] Mohamad Mouchli [facility] 12-11-2023 11:35-0400 Heart rate 77 /min Mohamad Mouchli [facility] 12-11-2023 11:35-0400 Respiratory rate 18 /min Mohamad Mouchli [facility] 12-11-2023 11:35-0400 SaO2% (BldA) [Mass fraction] 96 % Mohamad Mouchli [facility] 12-11-2023 11:35-0400 Systolic blood pressure 127 mm[Hg] Mohamad Mouchli [facility] 12-11-2023 11:27-0400 Body temperature 97.88 [degF] Mohamad Mouchli [facility] 12-11-2023 11:05-0400 Respiratory rate 16 /min Mohamad Mouchli [facility] 12-11-2023 09:58-0400 Blood Pressure Location Mohamad Mouchli [facility] 12-11-2023 09:58-0400 Body temperature 97.52 [degF] Mohamad Mouchli [facility] 12-11-2023 09:58-0400 Respiratory rate 20 /min Mohamad Mouchli [facility] 11-27-2023 12:06-0400 Blood Pressure Location Mohamad Mouchli [facility] 11-27-2023 12:06-0400 Diastolic blood pressure 86 mm[Hg] Mohamad Mouchli [facility] 11-27-2023 12:06-0400 Heart rate 72 /min Mohamad Mouchli [facility] 11-27-2023 12:06-0400 Respiratory rate 16 /min Mohamad Mouchli [facility] 11-27-2023 12:06-0400 Systolic blood pressure 118 mm[Hg] Mohamad Mouchli [facility] 07-02-2023 18:51-0500 Body mass index (BMI) [Ratio] 28.8 kg/m2 Geraldo Didion BUILDING ENGINEER Work Phone: [facility] 07-02-2023 18:51-0500 Body temperature 98.01 [degF] Geraldo Farfanion BUILDING ENGINEER Work Phone: [facility] 07-02-2023 18:51-0500 Body weight 88.45 kg Geraldo Farfanion BUILDING ENGINEER Work Phone: [facility] 07-02-2023 18:51-0500 Diastolic blood pressure 80 mm[Hg] Geraldo Farfanion BUILDING ENGINEER Work Phone: [facility] 07-02-2023 18:51-0500 Heart rate 88 /min Geraldo Farfanion BUILDING ENGINEER Work Phone: [facility] 07-02-2023 18:51-0500 SaO2% (BldA) [Mass fraction] 99 % Geraldo Farfanion BUILDING ENGINEER Work Phone: [facility] 07-02-2023 18:51-0500 Systolic blood pressure 130 mm[Hg] Geraldo Farfanion BUILDING ENGINEER Work Phone: [facility] Healthcare Encounters Encounter Date Encounter Type Care Provider Facility Start: 12-11-2023 End: 12-11-2023 ambulatory Moise Lepe Facility:[facility] Start: 12-11-2023 End: 12-11-2023 Patient encounter procedure Moise Lepe [facility] Start: 11-27-2023 End: 11-27-2023 ambulatory Moise Lepe Facility:[facility] Start: 11-27-2023 End: 11-27-2023 Patient encounter procedure Moise Lepe [facility] Start: 11-05-2023 ambulatory [facility] Start: 11-05-2023 End: 11-05-2023 ambulatory PAWAN HOOVER Not Available Start: 07-02-2023 End: 07-02-2023 ambulatory GERALDO GUTIERREZ Not Available Start: 07-02-2023 End: 07-02-2023 Office outpatient visit 15 minutes Geraldo Gutierrez BUILDING ENGINEER Work Phone: [facility] Comment on above: Non-recurrent acute suppurative otitis media of left ear without spontaneous rupture of tympanic membrane (Primary Dx) Start: 05-18-2023 End: 05-18-2023 ambulatory GERALDO GUTIERREZ Not Available Start: 03-11-2023 Patient encounter status Henny Gutierrez BUILDING ENGINEER Work Phone: [facility] Start: 10-24-2022 End: 10-24-[address] BERNADETTE BUTT Facility: Start: 06-18-2022 End: 06-18-2022 ambulatory BRYAN MITCHELL . Facility: Procedures Date Procedure Procedure Detail Performing Clinician Start: 12-11-2023 Colonoscopy Moise Lepe Start: 12-11-2023 Esophagogastroduodenoscopy Moise alexander Comment on above: esophagitis, gastritis, stomach polyp Immunizations Immunization Date Immunization Notes Care Provider Manas [facility] 08-13-2000 measles, mumps and rubella virus vaccine Geraldo Didion BUILDING ENGINEER Work Phone: [facility] 02-11-1990 diphtheria, tetanus toxoids and pertussis vaccine Geraldo Didion BUILDING ENGINEER Work Phone: [facility] 02-11-1990 trivalent poliovirus vaccine, live, oral Geraldo Didion BUILDING ENGINEER Work Phone: [facility] 12-27-1989 haemophilus influenz ae type b vaccine, conjugate unspecified formulation Geraldo Didion BUILDING ENGINEER Work Phone: [facility] 12-27-1989 measles, mumps and rubella virus vaccine Geraldo Didion BUILDING ENGINEER Work Phone: [facility] 07-09-1989 diphtheria, tetanus toxoids and pertussis vaccine Geraldo Didion BUILDING ENGINEER Work Phone: [facility] 03-29-1989 diphtheria, tetanus toxoids and pertussis vaccine Geraldo Didion BUILDING ENGINEER Work Phone: [facility] 03-29-1989 trivalent poliovirus vaccine, live, oral Geraldo Didion BUILDING ENGINEER Work Phone: [facility] 1988 diphtheria, tetanus toxoids and pertussis vaccine Geraldo Didion BUILDING ENGINEER Work Phone: [facility] 1988 trivalent poliovirus vaccine, live, oral Geraldo Didion BUILDING ENGINEER Work Phone: [facility] Payers Date Payer Category Payer Unknown [id number] 2022-Present [address] [place] [address] [id number] 1988 Unknown [id number] 1988 Unknown [id number] 1988 Unknown [id number] 1988 Unknown [id number] 1988 Unknown [id number] 1988 Unknown [id number] 1988 Unknown [id number] 1988 Unknown [id number] 1959 Unknown [id number] Social History Date Type Detail Facility Start: 11-02-2022 End: 11-27-2023 Tobacco smoking status NHIS Never smoked tobacco [facility] Start: 11-02-2022 Tobacco use and exposure Smokeless tobacco non-user [facility] Start: 03-13-2023 Alcohol intake Current drinke r of alcohol (finding) [facility] Start: 03-11-2023 History of Social function [facility] Start: 03-11-2023 Tobacco use panel [facility] Start: 03-13-2023 Alcohol Comment 5 or 6 drinks monthly or less [facility] Start: 1990 Sex Assigned At Not on file [facility] Tobacco smoking status Never [facility] Functional Status Date Assessment Result Facility 12-11-2023 Functional Status N/A [facility] 11-27-2023 Functional Status N/A [facility] Clinical Notes 02-16-2021 to 12-11-2023 Note Date & Type Note Facility 12-11-2023 Evaluation + Plan note Extrac katina from: Title:ANES Post-operative Note - General Author: James Oneal Jr., DO Date:12/11/23 Plan Transfer/Discharge: Transfer/Discharge Discharge when meets criteria ( From PACU to Ambulatory Surgery Unit, and To home ). Extracted from: Title:ANES Pre-operative Note - Endo Author:James Pelaez Jr., DO Date:12/11/23 Plan [place] [employer]esthesiologists (ASA) physical status classification: Class II. Anesthetic Preoperative Plan: Anesthesia General, and -TIVA. [facility]07-17-2024 Hospital Discharge instructions Patient Education 12/11/2023 11:38:48 Upper Endoscopy, Adult, Care After Upper Endoscopy, Adult, Care After After the procedure, it is common to have a sore throat. It is also common to have: Mild stomach pain or discomfort. Bloating. Nausea. Follow these instructions at home: The instructions below may help you care for yourself at home. Your health care provider may give you more instructions. If you have questions, ask your health care provider. If you were given a sedative during the procedure, it can affect you for several hours. Do not drive or operate machinery until your health care provider says that it is safe. If you will be going home right after the procedure, plan to have a responsible adult: ?Take you home from the hospital or clinic. You will not be allowed to drive. ?Care for you for the time you are told. Follow instructions from your health care provider about what you may eat and drink. Return to your normal activities as told by your health care provider. Ask your health care provider what activities are safe for you. Take fxxf-xlv-nclayui and prescription medicines only as told by your health care provider. Contact a health care provider if you: Have a sore throat that lasts longer than one day. Have trouble swallowing. Have a fever. Get help right away if you: Vomit blood or your vomit looks like coffee grounds. Have bloody, black, or tarry stools. Have a very bad sore throat or you cannot swallow. Have difficulty breathing or very bad pain in your chest or abdomen. These symptoms may be an emergency. Get help right away. Call 911. Do not wait to see if the symptoms will go away. Do not drive yourself to the hospital. Summary After the procedure, it is common to have a sore throat, mild stomach discomfort, bloating, and nausea. If you were given a sedative during the procedure, it can affect you for several hours. Do not drive until your health care provider says that it is safe. Follow instructions from your health care provider about what you may eat and drink. Return to your normal activities as told by your health care provider. This information is not intended to replace advice given to you by your health care provider. Make sure you discuss any questions you have with your health care provider. Document Revised: 08/22/2022 Document Reviewed: 08/22/2022 [employer] Patient Education 2022 [employer]. 12/11/2023 11:38:43 Stomach Polyps Stomach Polyps A stomach polyp, also called a gastric polyp, is a growth on the lining of the stomach. A stomach polyp may be found by chance when you are being examined for another reason. Most polyps are not dangerous, but some can be harmful because of their size, location, or type. Polyps that can become harmful include: Large polyps. These can turn into open sores called ulcers. Ulcers can lead to stomach bleeding. Gastric outlet obstructions. These polyps block food from moving from the stomach to the small intestine. Adenomas. These polyps can become cancerous. What are the causes? Stomach polyps form when the lining of the stomach gets inflamed or damaged. Stomach inflammation and damage may be caused by: A long-lasting stomach condition, such as gastritis. Taking certain medicines to reduce stomach acid over a long period of time. An inherited condition called familial adenomatous polyposis. An infection caused by a type of bacteria called Helicobacter pylori, or H. pylori. What are the signs or symptoms? Usually, this condition does not cause any symptoms. If you do have symptoms, they may include: Pain or tenderness in the abdomen. Nausea. Trouble eating or swallowing. Blood in the stool (feces). Dark red or black coloring of the stool. How is this diagnosed? This condition may be diagnosed with: Your medical history. A medical procedure called an upper endoscopy. This procedure uses a flexible tube with a tiny camera on the end to look inside your stomach. A lab test in which a part of the polyp is examined. This test is done by removing a polyp tissue sample during an endoscopy to look at it under a microscope (biopsy). How is this treated? Treatment depends on the type, location, and size of the polyps. Treatment may include: Checking the polyps regularly with an endoscopy procedure. Removing the polyps with an endoscopy procedure. This may be done if the polyps are harmful or can become harmful. Removing a polyp often prevents problems from developing. Removing the polyps with a surgery called a partial gastrectomy. This may be done in rare cases to remove very large polyps. Treating the underlying condition that caused the polyps. Follow these instructions at home: Take hyoo-jmi-zhpqojv and prescription medicines only as told by your health care provider. Avoid foods and drinks that make your symptoms worse. Make sure that all the food you eat is properly cooked and stored. This will help prevent bacterialinfection, such as H. pylori infection. Do not drink alcohol if your health care provider tells you not to drink. Do not use any products that contain nicotine or tobacco. These products include cigarettes, chewing tobacco, and vaping devices, such as e-cigarettes. If you need help quitting, ask your health careprovider. Keep all follow-up visits. Your health care provider will want to look for stomach polyps regularly. Contact a health care provider if: You develop new symptoms such as: ?Loss of appetite. ?Feeling full after eating a small meal. ?Vomiting. ?Losing weight without trying. ?Feeling tired (fatigue). Your symptoms get worse. You cannot eat or drink. You have questions about the tests or procedures you may need. Get help right away if: You vomit blood. You have severe abdominal pain. You have blood in your stool. Summary A stomach polyp, also called a gastric polyp, is a growth on the lining of the stomach. Usually, this condition does not cause any symptoms. If you do have symptoms, you may have abdominal pain, nausea, trouble eating or swallowing, or blood in your stool. This condition may be diagnosed with a medical procedure called an upper endoscopy. Get help right away if you vomit blood. This information is not intended to replace advice given to you by your health care provider. Make sure you discuss any questions you have with your health care provider. Document Revised: 07/10/2022 Document Reviewed: 07/10/2022 [employer] Patient Education 2022 [employer]. 12/11/2023 11:38:38 Esophagitis Esophagitis Esophagitis is inflammation of the esophagus. The esophagus is the tube that carries food from the mouth to the stomach. Esophagitis can cause soreness or pain in the esophagus. This condition can make it difficult and painful to swallow. What are the causes? Most causes of esophagitis are not serious. Common causes of this condition include: Gastroesophageal reflux disease (GERD). This is when stomach contents move back up into the esophagus (reflux). Repeated vomiting. An allergic reaction, especially caused by food allergies (eosinophilic esophagitis). Injury to the esophagus by swallowing large pills with or without water, or swallowing certain types of medicines. Swallowing harmful chemicals, such as household cleaning products. Drinking a lot of alcohol. An infection of the esophagus. This most often occurs in people who have a weakened immune system. Radiation or chemotherapy treatment for cancer. Certain diseases such as sarcoidosis, Crohn's disease, and scleroderma. What are the signs or symptoms? Symptoms of this condition include: Difficult or painful swallowing. Pain with swallowing acidic liquids, such as citrus juices. You may also have pain when you burp. Chest pain and difficulty breathing. Nausea and vomiting. Pain in the abdomen. Weight loss. Ulcers in the mouth and white patches in the mouth (candidiasis). Fever. Coughing up blood or vomiting blood. Stool that is black, tarry, or bright red. How is this diagnosed? This condition may be diagnosed based on your medical history and a physical exam. You may also have other tests, including: A test to examine your esophagus and stomach with a small flexible tube with a camera (endoscopy). A test that measures the acidity level in your esophagus. A test that measures how much pressure is on your esophagus. A barium swallow or modified barium swallow to show the shape, size, and functioning of your esophagus. Allergy tests. How is this treated? Treatment for this condition depends on the cause of your esophagitis. In some cases, steroids or other medicines may be given to help relieve your symptoms or to treat the underlying cause of your condition. You may have to make some lifestyle changes, such as: Avoiding alcohol. Quitting any products that contain nicotine or tobacco. These products include cigarettes, chewing tobacco, and vaping devices, such as e-cigarettes. If you need help quitting, ask your health care provider. Changing your diet. Exercising. Changing your sleep habits and your sleep environment. Follow these instructions at home: Medicines Take chkr-ppi-zhshpqu and prescription medicines only as told by your health care provider. Do not take aspirin, ibuprofen, or other NSAIDs unless your health care provider told you to do so. If you have trouble taking pills: ?Use a pill splitter to decrease the size of the pill. This will decrease the chance of the pill getting stuck or injuring your esophagus. ?Drink water after you take a pill. Eating and drinking Avoid foods and drinks that seem to make your symptoms worse. Follow a diet as recommended by your health care provider. This may involve avoiding foods and drinks such as: ?Coffee and tea, with or without caffeine. ?Drinks that contain alcohol. ?Energy drinks and sports drinks. ?Carbonated drinks or sodas. ?Chocolate and cocoa. ?Peppermint and mint flavorings. ?Garlic and onions. ?Horseradish. ?Spicy and acidic foods, including peppers, chili powder, carroll powder, vinegar, hot sauces, and barbecue sauce. ?Ramsay fruit juices and citrus fruits, such as oranges, bhavin, and limes. ?Tomato-based foods, such as red sauce, chili, salsa, and pizza with red sauce. ?Fried and fatty foods, such as donuts, brit[place] islander fries, potato chips, and high-fat dressings. ?High-fat meats, such as hot dogs and fatty cuts of red and white meats, such as rib eye steak, sausage, ham, and ramey. ?High-fat dairy items, such as whole milk, butter, and cream cheese. Lifestyle Eat small, frequent meals instead of large meals. Avoid drinking large amounts of liquid with your meals. Avoid eating meals during the 2 3 hours before bedtime. Avoid lying down right after you eat. Do not exercise right after you eat. Do not use any products that contain nicotine or tobacco. These products include cigarettes, chewing tobacco, and vaping devices, such as e-cigarettes. If you need help quitting, ask your health careprovider. General instructions Pay attention to any changes in your symptoms. Let your health care provider know about them. Wear loose-fitting clothing. Do not wear anything tight around your waist that causes pressure on your abdomen. Raise (elevate) the head of your bed about 6 inches (15 cm). You may need to use a wedge to do this. Try relaxation strategies such as yoga, deep breathing, or meditation to manage stress. If you needhelp reducing stress, ask your health care provider. If you are overweight, reduce your weight to an amount that is healthy for you. Ask your health care provider for guidance about a safe weight loss goal. Keep all follow-up visits. This is important. Contact a health care provider if: You have new symptoms. You have unexplained weight loss. You have difficulty swallowing, or it hurts to swallow. You have wheezing or a cough that does not go away. Your symptoms do not improve with treatment. You have frequent heartburn for more than two weeks. Get help right away if: You have sudden severe pain in your arms, neck, jaw, teeth, or back. You suddenly feel sweaty, dizzy, or light-headed. You have chest pain or shortness of breath. You vomit and the vomit is green, yellow, or black, or it looks like blood or coffee grounds. Your stool is red, bloody, or black. You have a fever. You cannot swallow, drink, or eat. These symptoms may represent a serious problem that is an emergency. Do not wait to see if the symptoms will go away. Get medical help right away. Call your local emergency services (911 in the [place] Do not drive yourself to the hospital. Summary Esophagitis is inflammation of the esophagus. Most causes of esophagitis are not serious. Follow your health care provider's instructions about eating and drinking. Contact a health care provider if you have new symptoms, have weight loss, or coughing that does not stop. Get help right away if you have severe pain in the arms, neck, jaw, teeth, or back, or if you have chest pain, shortness of breath, or fever. This information is not intended to replace advice given to you by your health care provider. Make sure you discuss any questions you have with your health care provider. Document Revised: 11/21/2020 Document Reviewed: 11/21/2020 [employer] Patient Education 2022 [employer]. 12/11/2023 11:38:35 Gastritis, Adult Gastritis, Adult Gastritis is inflammation of the stomach. There are two kinds of gastritis: Acute gastritis. This kind develops suddenly. Chronic gastritis. This kind is much more common. It develops slowly and lasts for a long time. Gastritis happens when the lining of the stomach becomes weak or gets damaged. Without treatment, gastritis can lead to stomach bleeding and ulcers. What are the causes? This condition may be caused by: An infection. Drinking too much alcohol. Certain medicines. These include steroids, antibiotics, and some bala-dkj-wqcgiog medicines, such as aspirin or ibuprofen. Having too much acid in the stomach. Having a disease of the stomach. Other causes may include: An allergic reaction. Some cancer treatments (radiation). Smoking cigarettes or the use of products that contain nicotine or tobacco. In some cases, the cause of this condition is not known. What increases the risk? Having a disease of the intestines. Having a disease in which the body's immune system attacks the body (autoimmune disease), such as Crohn's disease. Using aspirin or ibuprofen and other NSAIDs to treat other conditions, such as heart disease or chronic pain. Stress. What are the signs or symptoms? Symptoms of this condition include: Pain or a burning sensation in the upper abdomen. Nausea. Vomiting. An uncomfortable feeling of fullness after eating. Weight loss. Bad breath. Blood in your vomit or stool (feces). In some cases, there are no symptoms. How is this diagnosed? This condition may be diagnosed based on your medical history, a physical exam, and tests. Tests may include: Your medical history and a description of your symptoms. A physical exam. Tests. These can include: ?Blood tests. ?Stool tests. ?A test in which a thin, flexible instrument with a light and a camera is passed down the esophagusand into the stomach (upper endoscopy). ?A test in which a tissue sample is removed to look at it under a microscope (biopsy). How is this treated? This condition may be treated with medicines. The medicines that are used vary depending on the cause of the gastritis. If the condition is caused by a bacterial infection, you may be given antibiotic medicines. If the condition is caused by too much acid in the stomach, you may be given medicines called H2 blockers, proton pump inhibitors, or antacids. Treatment may also involve stopping the use of certain medicines such as aspirin or ibuprofen and other NSAIDs. Follow these instructions at home: Medicines Take qtod-mbu-msppbht and prescription medicines only as told by your health care provider. If you were prescribed an antibiotic medicine, take it as told by your health care provider. Do notstop taking the antibiotic even if you start to feel better. Alcohol use Do not drink alcohol if: ?Your health care provider tells you not to drink. ?You are , may be , or are planning to become . If you drink alcohol: ?Limit your use to: ?0 1 drink a day for women. ?0 2 drinks a day for men. ?Know how much alcohol is in your drink. In the [place] one drink equals one 12 oz bottle of beer (355 mL), one 5 oz glass of wine (148 mL), or one 1 oz glass of hard liquor (44 mL). General instructions Eat small, frequent meals instead of large meals. Avoid foods and drinks that make your symptoms worse. Talk with your health care provider about ways to manage stress, such as getting regular exercise or practicing deep breathing, meditation, or yoga. Do not use any products that contain nicotine or tobacco. These products include cigarettes, chewing tobacco, and vaping devices, such as e-cigarettes. If you need help quitting, ask your health careprovider. Drink enough fluid to keep your urine pale yellow. Keep all follow-up visits. This is important. Contact a health care provider if: Your symptoms get worse. Your abdominal pain gets worse. Your symptoms return after treatment. You have a fever. Get help right away if: You vomit blood or a substance that looks like coffee grounds. You have black or dark red stools. You are unable to keep fluids down. These symptoms may represent a serious problem that is an emergency. Do not wait to see if the symptoms will go away. Get medical help right away. Call your local emergency services (911 in the [place] Do not drive yourself to the hospital. Summary Gastritis is inflammation of the lining of the stomach that can occur suddenly (acute) or develop slowly over time (chronic). This condition is diagnosed with a medical history, a physical exam, or tests. This condition may be treated with medicines to treat infection or medicines to reduce the amount of acid in your stomach. Follow your health care provider's instructions about taking medicines, making changes to your diet, and knowing when to call for help. This information is not intended to replace advice given to you by your health care provider. Make sure you discuss any questions you have with your health care provider. Document Revised: 09/16/2021 Document Reviewed: 09/16/2021 [employer] Patient Education 2022 [employer]. 12/11/2023 11:38:30 Colonoscopy, Care After Surgery Salam (CUSTOM) Colonoscopy Care After Surgery Please read the instructions outlined below and refer to this sheet in the next few weeks. These discharge instructions provide you with general information on caring for yourself after you leave thespital. Your doctor may also give you specific instructions. While your treatment has been planned according to the most current medical practices available, unavoidable complications occasionally occur. If you have any problems or questions after discharge, please call your doctor. ACTIVITY You may resume your regular activity, but move at a slower pace for the next 24 hours. Take frequent rest periods for the next 24 hours. Walking will help get rid of the air and reduce the bloated feeling in your abdomen (belly). No driving for 24 hours (because of the anesthesia (medicine) used during the test). You may shower. Do not sign any important legal documents or operate any machinery for 24 hours (because of the anesthesia used during the test). NUTRITION Drink plenty of fluids. You may resume your normal diet as instructed by your doctor. Begin with a light meal and progress to your normal diet. Heavy or fried foods are harder to digestand may make you feel nauseated (sick to your stomach). Avoid alcoholic beverages for 24 hours or as instructed. MEDICATIONS You may resume your normal medications unless your doctor tells you otherwise. WHAT YOU CAN EXPECT TODAY Some feelings of bloating in the abdomen. Passage of more gas than usual. Spotting of blood in your stool or on the toilet paper. FOLLOW-UP Your doctor will discuss the results of your test with you. SEEK IMMEDIATE MEDICAL ATTENTION IF: There is more than a spotting of blood in your stool. There is abdominal distention (your abdomen is swollen). There is vomiting. You have a temperature over 101.5 F. There is abdominal pain or discomfort that is severe or gets worse throughout the day. 12/11/2023 11:38:29 Diverticulosis MAGR (CUSTOM) Diverticulosis Many people have small pouches in their colon called diverticulum. The diverticulum bulge outward through weak spots in the colon. You could have one or more of these pouches in the colon. The condition of having these pouches in the colon is called diverticulosis or diverticular disease. Diverticulosis is usually diagnosed by tests to evaluate something else. For example, you may have had a colonoscopy to screen for colon cancer when the diverticulosis was found. Most people with diverticulosis do not have any discomfort or problems. If symptoms develop, they may include mild cramps, bloating, and constipation. A complication of this condition is called diverticulitis. This is when the diverticulum become inflamed and infected. How to treat diverticulosis: Increasing the amount of fiber in the diet may reduce symptoms of diverticulosis and prevent complications such as diverticulitis (infected diverticuli). Fiber keeps stool soft and lowers pressure inside the colon so that bowel contents can move througheasily. You should eat 20 to 35 grams of fiber each day. The table below shows the amount of fiber in some foods that you can easily add to your diet. Adding fiber slowly may decrease the bloating and fullness sometimes felt with an immediate high fiber diet. The doctor may also recommend taking a fiber product such as Citrucel or Metamucil once a day. In the past people with diverticulosis were to avoid nuts, corn, and seeds. This has not been foundto be true. If you find that certain foods create cramping or bloating, avoid that food. Foods high in fiber include: Fresh fruits, fresh vegetables, legumes (beans), whole wheat bread, bran muffins or cereal, and nuts. See the table below for examples of high fiber foods. Remember, your goal is 20- 35 grams per day. Amount of fiber in different foods Food Serving Grams of fiber Fruits Apple (with skin) 1 medium apple 4.4 Banana 1 medium banana 3.1 Oranges 1 orange 3.1 Prunes 1 cup, pitted 12.4 Juices Apple, unsweetened, w/added ascorbic acid 1 cup 0.5 Grapefruit, white, canned, sweetened 1 cup 0.2 Grape, unsweetened, w/added ascorbic acid 1 cup 0.5 [place] 1 cup 0.7 Vegetables Cooked Green beans 1 cup 4.0 Carrots 1/2 cup sliced 2.3 Peas 1 cup 8.8 Potato (baked, with skin) 1 medium potato 3.8 Raw [place] (with peel) 1 cucumber 1.5 Lettuce 1 cup shredded 0.5 Tomato 1 medium tomato 1.5 Spinach 1 cup 0.7 Legumes Baked beans, canned, no salt added 1 cup 13.9 Kidney beans, canned 1 cup 13.6 Christie beans, canned 1 cup 11.6 Lentils, boiled 1 cup 15.6 Breads, pastas, flours Bran muffins 1 medium muffin 5.2 Oatmeal, cooked 1 cup 4.0 White bread 1 slice 0.6 Whole-wheat bread 1 slice 1.9 Pasta and rice, cooked Macaroni 1 cup 2.5 Rice, brown 1 cup 3.5 Rice, white 1 cup 0.6 Spaghetti (regular) 1 cup 2.5 Nuts Almonds 1/2 cup 8.7 Peanuts 1/2 cup 7.9 Chart from [facility] 2013. SEEK IMMEDIATE MEDICAL CARE IF: You develop abdominal (belly) pain. An oral temperature above _ 101 F__develops. Repeated vomiting occurs. Blood is being passed in stools (bright red or black tarry stools). You develop any bowel problems or changes which you have not had before. Extra Information: To learn how much fiber and other nutrients are in different foods, visit the [place] Department of Agriculture (USDA) National Nutrient Database at: http://www.nal.usda.gov/fnic/foodcomp/search/ Created using data from the USDA National Nutrient Database for Standard Reference. Available at http://www.nal.usda.gov/fnic/foodcomp/search/. Information adapted from: [employer] Patient Information 2009 [employer] 2012 http://www.Dada/contents/djwuksywxybk-pergyqj-fzkxzb-the-basics Follow Up Care 11/27/2023 12:49:15 With:Sherley LÓPEZ, Moise Scott [facility] Address: [address] [place] [address], [address] [place] [phone] When: Unknown Comments:office will call for follow up [facility]07-17-2024 NoteProgress Note-Physician Patient: EDWARD GOSS Age: 33 years Sex: Male : 1990 Associated Diagnoses: None Author: James Oneal Jr., DO Postoperative Information Postoperative disposition: Postoperative disposition: Home. Optimetrix number: Optimetrix number [id number]. Anesthetic utilized: General. Physical Examination Vital Signs 12/11/2023 11:35 EDT Heart Rate Monitored 77 bpm Respiratory Rate Monitored 18 br/min Systolic Blood Pressure 127 mmHg Diastolic Blood Pressure 87 mmHg SpO2 96 % 12/11/2023 11:30 EDT Heart Rate Monitored 78 bpm Respiratory Rate Monitored 20 br/min Systolic Blood Pressure 127 mmHg Diastolic Blood Pressure 87 mmHg SpO2 97 % 12/11/2023 11:27 EDT Temperature Temporal Artery 36.6 DegC Heart Rate Monitored 76 bpm Respiratory Rate Monitored 21 br/min Systolic Blood Pressure 132 mmHg Diastolic Blood Pressure 82 mmHg SpO2 98 % Pain Assessment: Controlled. General: Awake, Alert, Appropriate. Respiratory: Adequate air exchange, Non-labored. Cardiovascular: Stable, Normal peripheral perfusion. Neurological: Neurologic exam at baseline. No changes.. Assessment Anesthetic outcome No anesthetic complications noted. No nausea/vomiting. Review / Management Condition: Stable. Plan Transfer/Discharge: Transfer/Discharge Discharge when meets criteria ( From PACU to Ambulatory Surgery Unit, and To home ).[facility]:Result Comment: Electronically Signed By: James Oneal Jr., DO\.br\Date and Time Signed: 12/11/23 12:06 [id number] NotePatient Education - Text Colonoscopy Care After Surgery Please read the instructions outlined below and refer to this sheet in the next few weeks. These discharge instructions provide you with general information on caring for yourself after you leave thespital. Your doctor may also give you specific instructions. While your treatment has been planned according to the most current medical practices available, unavoidable complications occasionally occur. If you have any problems or questions after discharge, please call your doctor. ACTIVITY You may resume your regular activity, but move at a slower pace for the next 24 hours. Take frequent rest periods for the next 24 hours. Walking will help get rid of the air and reduce the bloated feeling in your abdomen (belly). No driving for 24 hours (because of the anesthesia (medicine) used during the test). You may shower. Do not sign any important legal documents or operate any machinery for 24 hours (because of the anesthesia used during the test). NUTRITION Drink plenty of fluids. You may resume your normal diet as instructed by your doctor. Begin with a light meal and progress to your normal diet. Heavy or fried foods are harder to digestand may make you feel nauseated (sick to your stomach). Avoid alcoholic beverages for 24 hours or as instructed. MEDICATIONS You may resume your normal medications unless your doctor tells you otherwise. WHAT YOU CAN EXPECT TODAY Some feelings of bloating in the abdomen. Passage of more gas than usual. Spotting of blood in your stool or on the toilet paper. FOLLOW-UP Your doctor will discuss the results of your test with you. SEEK IMMEDIATE MEDICAL ATTENTION IF: There is more than a spotting of blood in your stool. There is abdominal distention (your abdomen is swollen). There is vomiting. You have a temperature over 101.5 F. There is abdominal pain or discomfort that is severe or gets worse throughout the day. Diverticulosis Many people have small pouches in their colon called diverticulum. The diverticulum bulge outward through weak spots in the colon. You could have one or more of these pouches in the colon. The condition of having these pouches in the colon is called diverticulosis or diverticular disease. Diverticulosis is usually diagnosed by tests to evaluate something else. For example, you may have had a colonoscopy to screen for colon cancer when the diverticulosis was found. Most people with diverticulosis do not have any discomfort or problems. If symptoms develop, they may include mild cramps, bloating, and constipation. A complication of this condition is called diverticulitis. This is when the diverticulum become inflamed and infected. How to treat diverticulosis: Increasing the amount of fiber in the diet may reduce symptoms of diverticulosis and prevent complications such as diverticulitis (infected diverticuli). Fiber keeps stool soft and lowers pressure inside the colon so that bowel contents can move througheasily. You should eat 20 to 35 grams of fiber each day. The table below shows the amount of fiber in some foods that you can easily add to your diet. Adding fiber slowly may decrease the bloating and fullness sometimes felt with an immediate high fiber diet. The doctor may also recommend taking a fiber product such as Citrucel or Metamucil once a day. In the past people with diverticulosis were to avoid nuts, corn, and seeds. This has not been foundto be true. If you find that certain foods create cramping or bloating, avoid that food. Foods high in fiber include: Fresh fruits, fresh vegetables, legumes (beans), whole wheat bread, bran muffins or cereal, and nuts. See the table below for examples of high fiber foods. Remember, your goal is 20- 35 grams per day. Amount of fiber in different foods Food Serving Grams of fiber Fruits Apple (with skin) 1 medium apple 4.4 Banana 1 medium banana 3.1 Oranges 1 orange 3.1 Prunes 1 cup, pitted 12.4 Juices Apple, unsweetened, w/added ascorbic acid 1 cup 0.5 Grapefruit, white, canned, sweetened 1 cup 0.2 Grape, unsweetened, w/added ascorbic acid 1 cup 0.5 [place] 1 cup 0.7 Vegetables Cooked Green beans 1 cup 4.0 Carrots 1/2 cup sliced 2.3 Peas 1 cup 8.8 Potato (baked, with skin) 1 medium potato 3.8 Raw [place] (with peel) 1 cucumber 1.5 Lettuce 1 cup shredded 0.5 Tomato 1 medium tomato 1.5 Spinach 1 cup 0.7 Legumes Baked beans, canned, no salt added 1 cup 13.9 Kidney beans, canned 1 cup 13.6 Christie beans, canned 1 cup 11.6 Lentils, boiled 1 cup 15.6 Breads, pastas, flours Bran muffins 1 medium muffin 5.2 Oatmeal, cooked 1 cup 4.0 White bread 1 slice 0.6 Whole-wheat bread 1 slice 1.9 Pasta and rice, cooked Macaroni 1 cup 2.5 Rice, brown 1 cup 3.5 Rice, white 1 cup 0.6 Spaghetti (regular) 1 cup 2.5 Nuts Almonds 1/2 cup 8.7 Peanuts 1/2 cup 7.9 Chart from [facility] 2 (more content not included)...[facility] 12-11-2023 NoteColonoscopy Procedure Report Patient: EDWARD GOSS Age: 33 years Sex: Male : 1990 Associated Diagnoses: None Author: Moise Lepe MD Pre-Procedure Procedure Date 12/11/2023 11:24:00 . Procedure Type: Colonoscopy with biopsy. Procedure provider Performed by Moise Lepe MD. Current history and physical Documented on chart. No active procedure history items have been selected or recorded.. Past Medical History No active or resolved past medical history items have been selected or recorded.. Family History Entire family history is negative.. Procedure History No active procedure history items have been selected or recorded.. Colorectal neoplasm risk assessment Average risk. Informed Consent After discussing the rationale, risks and benefits, and alternatives to this procedure, the patient provided signed consent for the procedure. Pre-procedure diagnosis: Diagnostic: Diarrhea. Medications (Selected) Inpatient Medications Ordered Lactated Ringers IV Mayuri 1000 mL 1,000 mL: 1,000 mL, IV, 100 mL/hr, Routine, Start date 12/11/23 9:58:00 EDT, 10 hour(s), Total volume (mL): 1,000, 83.8 kg, 2.02, m2 Sodium Chloride 0.9% IV Mayuri 1000 mL 1,000 mL: 1,000 mL, IV, 20 mL/hr, Routine, Start date 12/11/23 7:15:00 EDT, 50 hour(s), Total volume (mL): 1,000, 83.8 kg, 2.02, m2 Prescriptions Prescribed Levsin 0.125 mg SL Tab: 0.25 mg = 2 tab(s), Oral, QID, PRN for spasm, # 80 tab(s), Refills(s) 0, Pharmacy: [facility]/pharmacy #[id number], 176, cm, 11/27/23 12:09:00 EDT, Height/Length Dosing, 83.8, kg, 11/27/2411:09:00 EDT, Weight Dosing Percocet 2.5/325 oral tablet: 1 tab(s), Oral, q4hr for pain, 12 tab(s), Refill(s) 0 Documented Medications Documented Ambien: Oral, Once a day (at bedtime), Refills(s) 0, Sleep Trintellix: Oral, Daily, Refills(s) 0, Depression pantoprazole: Refills(s) 0, Control of stomach acid ASA Classification: Class II. . Monitoring: See anesthesia record. . Procedure The procedure was performed in the hospital. See anesthesia record for sedation given during procedure. The patient was positioned starting in the left lateral decubitus position. Endoscope type usedwas a pediatric-size. The endoscope was lubricated then introduced through the anus. The scope was advanced to the terminal ileum. No difficulties encountered during the procedure. The bowel preparation quality was good and was adequate (see polyps greater than or equal to 6 millimeters). The patient tolerated the procedure well. Time to Cecum: 2 min Withdrawal time:9 min Findings 1. Small internal hemorrhoids 2. Diverticulosis throughout the whole colon. Otherwise, normal colon. Biopsies obtained 3. Normal terminal ileum Images Procedure images: Rec_hd_video____[id number] Rec_hd_video___[id number] Rec1_hd_video____[id number].jpg Rec_hd_video__[id number].jpg Rec_hd_video___[id number].jpg Rec1_hd_video_2023__[id number].jpg Rec1_hd_video_2023___[id number].jpg . Post-Procedure Complications: none. Estimated blood loss: none. Specimens: none. Devices/ implants: none left in place. Impression and Plan diverticulosis Internal hemorrhoids status post random colon biopsies Recommendations: Repeat colonoscopy:: In 10 years. Follow-up:: in clinic as scheduled. Diet:: Previous. Medication resumption:: Continue current medications, Avoid NSAIDs. Return to activities:: After 24 hours. Education and Follow-up: Counseled: Patient, Family.[facility] Comment on above:Other Comment: Missing Attachment - attachment storage system not supported [id number] Can be viewed in source system Missing Attachment - attachment storage system not supported [id number] Can be viewed in source systemMissing Attachment - attachment storage system not supported [id number] Can be viewed in source systemMissing Attachment - attachment storage system not supported [id number] Can be viewed in source systemMissing Attachment - attachment storage system not supported [id number] Can be viewed in source systemMissing Attachment - attachment storage system not supported [id number] Can be viewed in source systemMissing Attachment - attachment storage system not supported [id number] Can be viewed in source [id number] Note Progress Note-Physician Patient: EDWARD GOSS Age: 33 years Sex: Male : 1990 Associated Diagnoses: None Author: James Oneal Jr., DO Preoperative Information Anesthesia history: Patient history: No prior anesthetic problems. Informed consent: Signed by patient. Re-evaluation prior to induction: Initial evaluation reviewed: No significant change. Review of Systems Respiratory: Negative except as documented in history of present illness. Cardiovascular: Negative except as documented in history of present illness. Health Status Allergies: Allergic Reactions (Selected) No Known Allergies, Allergies (1) Active Severity Reaction No Known Allergies None Documented Current medications: (Selected) Inpatient Medications Ordered Lactated Ringers IV Mayuri 1000 mL 1,000 mL: 1,000 mL, IV, 100 mL/hr, Routine, Start date 12/11/23 9:58:00 EDT, 10 hour(s), Total volume (mL): 1,000, 83.8 kg, 2.02, m2 Sodium Chloride 0.9% IV Mayuri 1000 mL 1,000 mL: 1,000 mL, IV, 20 mL/hr, Routine, Start date 12/11/23 7:15:00 EDT, 50 hour(s), Total volume (mL): 1,000, 83.8 kg, 2.02, m2 Prescriptions Prescribed Levsin 0.125 mg SL Tab: 0.25 mg = 2 tab(s), Oral, QID, PRN for spasm, # 80 tab(s), Refills(s) 0, Pharmacy: [facility]/pharmacy #[id number], 176, cm, 11/27/23 12:09:00 EDT, Height/Length Dosing, 83.8, kg, 11/27/2411:09:00 EDT, Weight Dosing Percocet 2.5/325 oral tablet: 1 tab(s), Oral, q4hr for pain, 12 tab(s), Refill(s) 0 Documented Medications Documented Ambien: Oral, Once a day (at bedtime), Refills(s) 0, Sleep Trintellix: Oral, Daily, Refills(s) 0, Depression pantoprazole: Refills(s) 0, Control of stomach acid, Home Medications (5) Active Ambien , Oral, Once a day (at bedtime) Levsin 0.125 mg SL Tab 0.25 mg = 2 tab(s), PRN, Oral, QID pantoprazole Percocet 2.5/325 oral tablet 1 tab(s), PRN, Oral, q4hr Trintellix , Oral, Daily , Medications (2) Active Scheduled: (0) Continuous: (2) Lactated Ringers 1,000 mL 1,000 mL, IV, 100 mL/hr Sodium Chloride 0.9% 1,000 mL 1,000 mL, IV, 20 mL/hr PRN: (0) Problem list: All Problems Chronic diarrhea / SNOMED CT 327797912 / Confirmed Chronic GERD / SNOMED CT 521994253 / Confirmed Generalized abdominal pain / SNOMED CT 263396175 / Confirmed Ileitis / SNOMED CT [id number] / Confirmed Right lower quadrant abdominal pain / SNOMED CT [id number] / Confirmed 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 Procedure history: No active procedure history items have been selected or recorded. Social History Social & Psychosocial Habits Tobacco 11/27/2023 Tobacco Use: Never (less than 100 in l Smokeless tobacco use: Never Type: Cigarettes . Physical Examination Vital Signs 12/11/2023 9:58 EDT Temperature Temporal Artery 36.4 DegC Heart Rate Monitored 78 bpm Respiratory Rate 20 br/min Systolic Blood Pressure 116 mmHg Diastolic Blood Pressure 81 mmHg Blood Pressure Location Left arm SpO2 99 % Measurements from flowsheet : Measurements 12/11/2023 9:54 EDT Height/Length Measured 176 cm Height/Length Dosing 176.0 cm Weight Dosing 83.8 kg Weight Measured 83.8 kg Airway: Mallampati classification: II (soft palate, fauces, uvula visible). Respiratory: Lungs are clear to auscultation, Respirations are non-labored. Cardiovascular: Regular rhythm. Plan [place] [employer]esthesi[employer] (ASA) physical status classification: Class II. Anesthetic Preoperative Plan: Anesthesia General, and -TIVA.[facility] HospitalComment on above:Result Comment: Electronically Signed By: James Oneal Jr., DO\.br\Date and Time Signed: 12/11/23 10:08 [id number] History of Present illness Narrative* Geraldojeronimo Gutierrez, BUILDING ENGINEER - 07/02/2023 6:45 PM EST Images from the original note were not included. HPI: Historian of HPI: patient Edward Goss is a 32 y.o. male who presents today to the Urgent Care with the following complaints and denials which have been present for 3 day(s) C/O Denies Symptom Comments [] [] Runny Nose [] [] Difficulty Swallowing [] [] Sore Throat [] [] Cough [x] [] Ear Pain Left [] [] Fever [] [] Chills [] [] Nasal Congestion [] [] Myalgia [] [] Sinus Pain [] [] Sinus Pressure Additional Comments: pt has not taken any OTC medications Pt states I can't wear anything in my ear. Visit Vitals BP 130/80 (BP Location: Left arm, Patient Position: Sitting, BP Cuff Size: Large adult) Pulse 88 Temp 98 F (Temporal) Wt 195 lb SpO2 99% BMI 28.80 kg/m Smoking Status Never BSA 2.08 m ROS: A complete system ROS was performed and negative aside from the pertinent positives noted in the HPI and PE. Physical Exam General Examination: alert, oriented, normal affect, well-appearing, in no acute distress, well developed, well nourished Head: normocephalic, atraumatic Eyes: sclera anicteric Ears: L TM's markedly erythematous and bulging, scar tissue noted to the surrounding area Nose: nares patent Oral Cavity: mucosa moist Throat: clear Lungs: effortless Musculoskeletal: normal Psych: alert, oriented, cooperative with exam. Assessment/Plan 1. Non-recurrent acute suppurative otitis media of left ear without spontaneous rupture of tympanicmembrane New medications as directed. Report side effects of medication to PCP immediately. Call office if symptoms do not improve within the next 72 hours. Maintain clean hands as much as possible. To ER forworsening of symptoms. - amoxicillin (Amoxil) 875 MG tablet; Take 1 tablet (875 mg) by mouth in the morning and 1 tablet (875 mg) before bedtime. Do all this for 10 days. Dispense: 20 tablet; Refill: 0 - predniSONE (Deltasone) 20 MG tablet; Take two tablets once a day in the morning for 5 days Dispense: 10 tablet; Refill: 0 Follow up if symptoms worsen or fail to improve. Geraldo Gutierrez NP documented in this encounterSh[facility] [id number] NoteHNO ID: [id number] Author: Ngoc Holt MD Service: ? Author Type: Physician Type: Progress Notes Filed: 04/04/2021 5:27 PM Note Text: [facility] PROGRESS NOTE: ? Patient Name: Edward Goss ? ASSESSMENT AND PLAN: 30 year old male with abdominal bloating - No surgical intervention indicated as patient has no abdominal pain, no cholelithiasis, no gallbladder sludge, normal HIDA scan with normal ejection fraction, and the HIDA did not exacerbate his symptoms - Follow up with GI - Follow up with me PRN CC: Bloating INTERVAL HPI: Patient having some abdominal bloating. No nausea or vomiting. No abdominal pain. No new issues since last office visit. ? PHYSICAL EXAM: There were no vitals taken for this visit. Gen: NAD Pulm: Non-labored breathing, chest rise symmetric Neuro: Answering questions appropriately This visit was conducted as a virtual visit. I spent a total of 20 minutes on the date of the service which included preparing to see the patient, [id number] patient care, completing clinical documentation, obtaining and/or reviewing separately obtained history, performing a medically appropriate examination, counseling and educating the patient/family/caregiver, ordering medications, tests, or procedures and communicating results to the patient/family/caregiver. ? Edilson Holt MD [facility] surgery Pager: [phone] [facility]10-18-2021 NoteHNO ID: [id number] Author: RT Brittni(Ami) Service: Nuclear Medicine Author Type: Technologist Type: Progress Notes Filed: 03/13/2021 9:43 AM Note Text: RADIOLOGY SERVICE PROGRESS NOTE SERVICE DATE: 03/13/2021 SERVICE TIME: 9:42 AM PATIENT IDENTITY VERIFICATION COMPLETED USING TWO (2) STANDARD IDENTIFIERS: Name and Date of confirmed by patient verbally FALL SCREENING: Has the patient had 2 falls in the last year or 1 fall with injury or currently using an Ambulatory Assistive Device (Walker, Cane, Wheelchair, Crutches, etc.)? No PATIENT GENDER DATA: .male ALLERGIES: Reviewed and unchanged MEDICATIONS REVIEWED: Yes IV SITE: Ambulatory: A peripheral IV was started in the Right antecubital site with a Angio cath: 22 gauge. POST EXAM PIV STATUS: Discontinued PROCEDURE TYPE: NM INJECT: HIDA . 5.6 mCi Tc99m CHOLETEC. 8 fl oz Ensure Plus. ADMINISTRATION TIME: 929 PATIENT DISCHARGED TO: Ambulatory patient, left [place] department area. A Diagnostic radioactive procedure has taken place, with no further precautions necessary other than routine body substance precautions. More information regarding radiation safety can be found using this link: [email or web address] SIGNATURE: Manjula Young, RT(R) PATIENT NAME: Edward Goss DATE: March 13, 2021 TIME: 9:42 AM PAGER/CONTACT #: [phone] [facility]in [facility]09-24-2021 NoteHNO ID: [id number] Author: Ngoc Holt MD Service: ? Author Type: Physician Type: Progress Notes Filed: 02/17/2021 3:02 PM Note Text: Addendum: I have reviewed the history and physical examination obtained and documented by the resident/fellow/PA and I personally participated in the hamm components. I have discussed the case and management of the patient's care. The following comments revise or confirm relevant hamm components of the note. CC: Abdominal pain HPI: Patient having some gas and discomfort in his abdomen. He states it is post-prandial and exacerbated by greasy/fatty foods. He is not having any fevers or chills. No history of jaundice or pancreatitis. No abdominal surgeries before. The patient has a history of IBS, but states this feels different than his IBS symptoms. Plan: - Patient has no cholelithiasis or sludge on abdominal ultrasound, only a small, 3mm, gallbladder polyp. Will obtain HIDA with CCK to evaluate gallbladder function and see if that reproduces his symptoms. - EGD - Will follow up after above completed I spent a total of 60 minutes on the date of the service which included preparing to see the patient, [id number] patient care, completing clinical documentation, obtaining and/or reviewing separately obtained history, performing a medically appropriate examination, counseling and educating the patient/family/caregiver, ordering medications, tests, or procedures and communicating results to the patient/family/caregiver. SIGNATURE: Edilson Holt MD [facility] surgery Pager: [phone] [facility]09-24-2021 NoteHNO ID: [id number] Author: Juan David Callejas MD Service: ? Author Type: Resident Type: Progress Notes Filed: 02/17/2021 3:02 PM Note Text: HPB - OUTPATIENT CLINIC NOTE PATIENT NAME: Edward Goss DATE of SERVICE: February 17, 2021 TIME of SERVICE: 12:26 PM PCP: Buzz De Leon MD SUBJECTIVE Mr. Goss is a 30 year old male PMHx WPW s/p ablations x3 who presents to clinic for evaluation of R sided abdominal pain. Patient states he has been having postprandial epigastric pain, bloating/gas pain. Pain originally started approximately 1 year prior to presentation with increasing severity over past several months. Does have history of IBS-D, but states that the discomfort he currently reports is different in character/quality/location. Endorses discomfort is particularly after greasy foods. Pain limits movement/mobility. No previous upper endoscopies in past. Normal bowel function/movements per patient. Denies fevers/chills, nausea/vomiting, chest pain, dyspnea. No smoking history. Limited EtOH use. No previous abdominal surgeries in the past. Does present to clinic with OSH records including RUQ US which demonstrated a 3mm GB polyp; no CBD dilation, no cholelithiasis. PAST MEDICAL HISTORY: PAST MEDICAL HISTORY Diagnosis Date - Depression - SVT (Supraventricular Tachycardia) PAST SURGICAL HISTORY: PAST SURGICAL HISTORY Procedure Laterality Date - DENTAL SURGERY PROCEDURE wisdom teeth, tooth extraction - EPS: SVT/VT ABLATION 03/04 and 05/04 SVT RFA - PAST SURGICAL HISTORY OF 2003 excision of breast tissue - REPAIR SLIDING INGUINAL HERNIA 1991 right FAMILY HISTORY: FAMILY HISTORY Problem Relation Age of Onset - Hypertension Father - Breast Cancer Paternal Grandmother - Cervical Cancer Mother - Hypertension Paternal Grandfather - Stroke Father age 43 - Stroke Paternal Grandfather SOCIAL HISTORY: Social History Tobacco Use - Smoking status: Never Smoker Substance Use Topics - Alcohol use: No - Drug use: No REVIEW OF SYSTEMS PAIN ASSESSMENT: CURRENTLY HAVING PAIN; see HPI GENERAL: No weight loss, malaise or fevers HEENT: Negative for frequent or significant headaches, No changes in hearing or vision, no nose bleeds or other nasal problems NECK: Negative for lumps, goiter, pain and significant neck swelling RESPIRATORY: Negative for cough, hemoptysis, wheezing, COPD, dyspnea or shortness of breath CARDIOVASCULAR: see HPI GI: see HPI : No history of dysuria, frequency or incontinence COMMERCIAL LITIGATION PARALEGAL: N/A MUSCULOSKELETAL: Negative for joint pain or swelling, back pain or muscle pain SKIN: Negative for lesions, rash, and itching PSYCH: Negative for sleep disturbance, mood disorder and recent psychosocial stressors HEMATOLOGY/LYMPHOLOGY: Negative for prolonged bleeding, bruising easily or swollen nodes ENDOCRINE: Negative for cold or heat intolerance, polyuria, polydipsia and goiter NEURO: No history of headaches, syncope, paralysis, seizures or tremors OBJECTIVE BP 112/69 Pulse 80 Temp 36.7 ?C (98.1 ?F) (Temporal) Resp 12 Ht 175.3 cm (5' 9 ) Wt 75.3 kg (166 lb) BMI 24.51 kg/m? General: not in acute distress CV: regular rate Pulm: good respiratory effort Abd: soft, non distended, mildly tender R > L abdomen, no rebound/guarding, LABS: None recent ASSESSMENT/PLAN Mr. Goss is a 30 year old male PMHx WPW s/p ablations x3 who presents to clinic for evaluation of R sided abdominal pain. Presentation unclear etiology for R sided abdominal pain. Will start with preliminary investigations/studies to further delineate etiology: - HIDA scan - If HIDA scan negative, consider EGD w/biopsies - further surgical intervention pending above - RTC with results of above studies Juan David Callejas MD, PhD General Surgery PGY4 Pager: [phone] [facility]in [facility]09-23-2021 NoteHNO ID: [id number] Author: Codie Monge [facility] Service: ? Author Type: ? Type: Progress Notes Filed: 02/16/2021 8:52 AM Note Text: Outside medical records received on February 16, 2021 from [facility] Hospital[facility] Plan note Future Appointments Appointment Date:12/11/2023 10:45:00 AM Scheduled Provider: Location:[facility] Surgical Services Appointment Type:Surgery FT [facility] Evaluation note* Diagnosis Non-recurrent acute suppurative otitis media of left ear without spontaneous rupture of tympanic membrane- Primary [facility] Narrative No data available for this section [facility] Hospital Discharge instructions No data available for this section [facility] Progress note No data available for this section [facility] Summary Purpose Family History No Family History Records FoundNo Family History Records FoundNo Family History Records Found No data available for this section No data available for this section No Family History Records FoundNo Family History Records FoundNo Family History Records Found Advance Directives No Advanced Directives Records FoundNo Advanced Directives Records FoundNo Advanced Directives Records FoundNo Advanced Directives Records FoundNo Advanced Directives Records FoundNo Advanced Directives Records Found Additional Source Comments (unrecognized sect ion and content) No Status Records FoundNo Status Records FoundNo Status Records FoundNo Status Records FoundNo Status Records FoundNo Status Records Found INFORMATION SOURCE (unrecogn ized section and content) DATE CREATED AUTHOR 07/01/2021 [facility] DATE CREATED AUTHOR AUTHOR'S ORGANIZ ATION 11/02/2022 [facility] DATE CREATED AUTHOR AUTHOR'S ORGANIZ ATION 11/06/2023 [facility] EPIC DATE CREATED AUTHOR AUTHOR'S ORGANIZ ATION 12/14/2023 [facility] DATE CREATED AUTHOR AUTHOR'S ORGANIZ ATION 12/17/2023 [facility] Care Teams (unrecognized sec tion and content) Metal Inspector Relationship Specialty Start Date End Date Bernadette Butt MD [address] [address] PCP - General Family Medicine 09/29/22 Bernadette Butt MD [address] [address] PCP - Medical [facility] 10/25/22 FOR RECORDS PERTAINING TO PATIENTS WHO ARE OR HAVE BEEN ENROLLED IN A CHEMICAL DEPENDENCY/SUBSTANCEABUSE PROGRAM, SOME INFORMATION MAY BE OMITTED. This clinical summary was aggregated from multiple sources. Caution should be exercised in using it in the provision of clinical care. This summary normalizes information from multiple sources, and as a consequence, information in this document may materially change the coding, format and clinical context of patient data. In addition, data may be omitted in some cases. CLINICAL DECISIONS SHOULD BE BASED ON THE PRIMARY CLINICAL RECORDS. [email or web address] [facility]. provides no warranty or guarantee of the accuracy or completeness of information in this document.
[2024-01-13 10:35] LABS: Alanine Aminotransferase 35 U/L (16-63); Albumin Globulin Ratio 1.3; Alkaline Phosphatase 98 U/L (46-116); Aspartate Amino Transferase 16 U/L (15-37); BUN Creatinine Ratio 14.6; Bilirubin Total 0.6 mg/dL (0.2-1.0); Calcium 9.1 mg/dL (8.5-10.1); Carbon Dioxide 26.9 mmol/L (21.0-32.0); Chloride 104 mmol/L (98-107); Chol HDL Ratio 4.3; Cholesterol 138 mg/dL (<=200); Estimated GFR (African America >60 (>=60); Estimated GFR (Non-African Ame >60 (>=60); Glucose 91 mg/dL (74-106); HDL Cholesterol 32 mg/dL (40-60); Potassium 3.9 mmol/L (3.5-5.1); Sodium 139 mmol/L (136-145); Triglycerides 133 mg/dL (<=150); VLDL CHOLESTEROL 26.6 mg/dL
== END 2024-01-13 08:42 | disposition home or self-care (01) ==
LOC: LAB 08:43
PROVIDERS: PCP Family Medicine; Visit Provider Physician Assistant
DX: Z00.00 Encounter for general adult medical examination without abnormal findings (principal)
CPT/HCPCS: 36415; 80053; 80061; 85025